=== PATIENT | female | born 1955 | race Caucasian/White ===

== ENCOUNTER → 2017-01-09 | Outpatient (CLI) | payer BC, MEDICARE ==
[~2017-01-09] MED LIST: ACYC-57 PO; ASCO10004 PO; ATOR20TA PO; BOSE125T PO; CHOL200012 PO; CLON-364 PO; CYCL1DRO EACHEYE; DIAZ5TAB4 PO; DICL50TA2 PO; DIGO125T PO; ESOM40CA PO; FENO135C PO; FEXO180T5 PO; FURO40TA6 PO; HYDR-3241 PO; LISI2.5T PO; METF500T PO; METO5TAB5 PO; Magnesium PO; OLAN2.5T5 PO; OLAN5TAB9 PO; OMEG-110 PO; POTA20TA89 PO; PRAV40TA2 PO; PROP10DR3 EACHEYE; RIOC1TAB PO; SILD20TA PO; SPIR100T2 PO; TRIA0.2517 PO; VENL225T PO; VERA360C2 PO; WARF10TA6 PO; WARF5TAB7 PO
== END | disposition home or self-care (01) ==
LOC: CFH 14:22
PROVIDERS: ATTEND Internal Medicine Cardiovascular Disease
DX: I27.2 Other secondary pulmonary hypertension (principal)
CPT/HCPCS: 93306

== ENCOUNTER 2018-06-18 11:00 | Day surgery (SDC) | payer BC, MEDICARE ==
[~2018-06-18] VITALS: Ht 175.3 cm; Wt 80.7 kg
[~2018-06-18 11:00] MED LIST changes: -CHOL200012 PO; +CHOL200074 PO; -CLON-364 PO; +CLON0.5T11 PO; +FEXO180T15 PO; -FEXO180T5 PO; +OLAN2.5T10 PO; -OLAN2.5T5 PO; -SPIR100T2 PO; +SPIR100T4 PO; -TRIA0.2517 PO; +TRIA0.2576 PO; +WARF-36 PO; +WARF10TA43 PO; -WARF10TA6 PO; -WARF5TAB7 PO
[2018-06-18] MEDS ORDERED: LACTATED RINGERS 1,000 ML IV SCH (11:18)
[2018-06-18] MEDS ORDERED: PLEASE ENTER HEIGHT AND WEIGHT MC SCH (11:30)
[2018-06-18 11:43] VITALS: BP 115/67
[2018-06-18] MEDS ORDERED: MIDAZOLAM 1 MG/ML, 2ML ONE (11:55)
[2018-06-18] MEDS ORDERED: FENTANYL PF 100 MCG/2ML ONE (11:55)
[2018-06-18] MEDS ORDERED: MACI10TA PO (12:06)
[2018-06-18] MEDS ORDERED: LAMO50TA3 PO (12:06)
[2018-06-18] MEDS ORDERED: METF500T17 PO (12:06)
[2018-06-18] MEDS ORDERED: FURO80TA3 PO (12:06)
[2018-06-18] MEDS ORDERED: OXYM15MI4 NAS (12:06)
[2018-06-18] MEDS ORDERED: CYCL-259 PO (12:06)
[2018-06-18] MEDS ORDERED: PHENYLEPHRINE 10 MG/ML ONE (12:08)
[2018-06-18] MEDS ORDERED: ONDANSETRON 2MG/ML, 2ML ONE (12:08)
[2018-06-18] MEDS ORDERED: PROPOFOL 50 ML ONE (12:10)
[2018-06-18] MEDS ORDERED: HYDROmorphone 1 MG/ML, 1ML IV PRN (12:30)
[2018-06-18] MEDS ORDERED: LORazepam 2 MG/ML, 1ML IVPush PRN (12:30)
[2018-06-18] MEDS ORDERED: HALOPERIDOL 5 MG/ML IV PRN (12:30)
[2018-06-18] MEDS ORDERED: LABETALOL 5MG/ML, 20ML IV PRN (12:30)
[2018-06-18] MEDS ORDERED: OXYcodone 5 MG/5 ML ORAL.SOL UDC PO PRN (12:30)
[2018-06-18] MEDS ORDERED: hydrALAzine 20 MG/ML, 1ML IV PRN (12:30)
[2018-06-18] MEDS ORDERED: ACETAMINOPHEN 325 MG TABLET PO PRN (12:30)
[2018-06-18] MEDS ORDERED: ONDANSETRON 2MG/ML, 2ML IV PRN (12:30)
[2018-06-18] MEDS ORDERED: FENTANYL PF 100 MCG/2ML IV PRN (12:30)
[2018-06-18] MEDS ORDERED: MEPERIDINE/PF 25MG/0.5ML IVPush PRN (12:30)
== END 2018-06-18 15:00 | disposition home or self-care (01) ==
LOC: OUT 11:00
PROVIDERS: ATTEND Internal Medicine
DX: K29.50 Unspecified chronic gastritis without bleeding (principal); K62.1 Rectal polyp; D12.2 Benign neoplasm of ascending colon; K63.5 Polyp of colon; K21.9 Gastro-esophageal reflux disease without esophagitis; K57.30 Diverticulosis of large intestine without perforation or abscess without bleeding; I10 Essential (primary) hypertension; E11.9 Type 2 diabetes mellitus without complications; Z90.710 Acquired absence of both cervix and uterus; Z88.1 Allergy status to other antibiotic agents
CPT/HCPCS: 43239; 45380; 82962; 88305; 93005; J2370; J2405; J2704; J7120

== ENCOUNTER 2018-06-19 13:31 | Emergency (ER) | payer BC, MEDICARE ==
[~2018-06-19] VITALS: Ht 175.3 cm; Wt 83.4 kg
[~2018-06-19 13:31] MED LIST changes: +CYCL-259 PO; +FURO80TA3 PO; +LAMO50TA3 PO; +MACI10TA PO; +METF500T17 PO; +OXYM15MI4 NAS
[2018-06-19 13:34] VITALS: BP 130/73
[2018-06-19 14:28] LABS: BASOPHILS # (AUTO) 0.02 x10^3/uL (0-0.1); BASOPHILS % (AUTO) 0 % (0-1); EOSINOPHILS # (AUTO) 0.04 x10^3/uL (0-0.4); EOSINOPHILS % (AUTO) 1 % (1-7); LYMPHOCYTES # (AUTO) 1.84 x10^3/uL (1-3.4); LYMPHOCYTES % (AUTO) 23 % (22-44); MD NO; MEAN CORPUSCULAR HEMOGLOBIN 29.5 pg (27.0-34.8); MEAN CORPUSCULAR HGB CONC 32.9 g/dL (32.4-35.8); MEAN CORPUSCULAR VOLUME 89.7 fL (80-100); MEAN PLATELET VOLUME 8.7 fL (7.4-10.4); MONOCYTES # (AUTO) 0.58 x10^3/uL (0.2-0.8); MONOCYTES % (AUTO) 7 % (2-9); NEUTROPHILS # (AUTO) 5.69 x10^3/uL (1.8-6.8); NEUTROPHILS % (AUTO) 70 % (42-75); PLATELET COUNT 200 x10^3/uL (130-400); RED BLOOD COUNT 3.58 x10^6/uL (3.82-5.3); RED CELL DISTRIBUTION WIDTH 15.6 % (9.6-15.2)
[2018-06-19 14:30] LABS: ALBUMIN 3.5 g/dL (3.4-5.0); ANION GAP 5 mmol/L (5-15); CALCIUM 9.7 mg/dL (8.5-10.1); CHLORIDE 110 mmol/L (98-107); CREATININE 1.22 mg/dL (0.55-1.02)
[2018-06-19 14:32] LABS: INTERNATIONAL NORMALIZED RATIO 1.05 (0.93-1.1); PROTHROMBIN TIME 10.8 Seconds (9.6-11.5)
[2018-06-19] MEDS ORDERED: ACETAMINOPHEN 500 MG TABLET PO ONE (16:00)
[2018-06-19] MEDS ORDERED: ACETAMINOPHEN 500 MG TABLET ONE (16:15)
== END 2018-06-19 17:20 | disposition home or self-care (01) ==
LOC: ED 14:48
DX: I80.01 Phlebitis and thrombophlebitis of superficial vessels of right lower extremity (principal); I48.92 Unspecified atrial flutter; K21.9 Gastro-esophageal reflux disease without esophagitis; F32.9 Major depressive disorder, single episode, unspecified; Z88.2 Allergy status to sulfonamides; Z88.1 Allergy status to other antibiotic agents
CPT/HCPCS: 36415; 80048; 82040; 84132; 85025; 85610; 85730; 93005; 99285

== ENCOUNTER 2018-09-03 17:39 | Inpatient (IN) | payer BC, MEDICARE ==
[~2018-09-03] VITALS: Ht 175.3 cm; Wt 81.1 kg
[2018-09-03] MEDS ORDERED: ASPIRIN 81 MG TABLET CHEW PO ONE (18:00)
[2018-09-03] MEDS ORDERED: SODIUM CHLORIDE FLUSH 10ML SYR IVF ONE (18:00)
[2018-09-03] MEDS ORDERED: ASPIRIN 81 MG TABLET CHEW ONE (18:32)
[2018-09-03 18:40] LABS: BASOPHILS # (AUTO) 0.02 x10^3/uL (0-0.1); BASOPHILS % (AUTO) 0 % (0-1); EOSINOPHILS # (AUTO) 0.13 x10^3/uL (0-0.4); EOSINOPHILS % (AUTO) 2 % (1-7); LYMPHOCYTES # (AUTO) 2.43 x10^3/uL (1-3.4); LYMPHOCYTES % (AUTO) 28 % (22-44); MD NO; MEAN CORPUSCULAR HEMOGLOBIN 29.1 pg (27.0-34.8); MEAN CORPUSCULAR HGB CONC 33.1 g/dL (32.4-35.8); MEAN PLATELET VOLUME 8.3 fL (7.4-10.4); MONOCYTES # (AUTO) 0.59 x10^3/uL (0.2-0.8); MONOCYTES % (AUTO) 7 % (2-9); NEUTROPHILS # (AUTO) 5.52 x10^3/uL (1.8-6.8); NEUTROPHILS % (AUTO) 64 % (42-75); PLATELET COUNT 279 x10^3/uL (130-400); RED BLOOD COUNT 3.92 x10^6/uL (3.82-5.3); RED CELL DISTRIBUTION WIDTH 14.4 % (9.6-15.2)
[2018-09-03] MEDS ORDERED: MAGN400T22 PO (18:43)
[2018-09-03 18:47] LABS: INTERNATIONAL NORMALIZED RATIO 2.21 (0.93-1.1); PROTHROMBIN TIME 22.7 Seconds (9.6-11.5)
[2018-09-03 18:49] LABS: ALBUMIN 3.8 g/dL (3.4-5.0); ANION GAP 3 mmol/L (5-15); CALCIUM 9.3 mg/dL (8.5-10.1); CHLORIDE 107 mmol/L (98-107); CREATININE 1.76 mg/dL (0.55-1.02)
--- NOTE | 2018-09-03 18:49 | NUR ---
LATE ENTRY: PT CO INTERMITTENT, "GRABBING", SUBSTERNAL CP X ONE MONTH, WORSENING TODAY. PT REPORTS ONSET WITH LIGHT ACTIVITY, +DIZZINESS. CHEST NON-TENDER TO PALP; DENIES PRODUCTIVE COUGH/FEVER/SOB/LONG DISTANCE TRAVEL/BLE EDEMA OR PAIN. CP RADIATES TO BUE AND JAW. HX OF AFIB/AFLUTTER/PULMONARY HTN. WEARS 3L O2 BY NC AT BASELINE. PT SPEAKING IN FULL SENTENCES WO DIFFICULTY. RESPIRATIONS EVEN/UNLABORED. PT PWD.
[2018-09-03] MEDS ORDERED: VERA180C2 PO (18:50)
[2018-09-03] MEDS ORDERED: FLEC100T PO (18:50)
[2018-09-03 18:52] LABS: TROPONIN I 0.026 ng/mL (0.000-0.045)
--- NOTE | 2018-09-03 18:58 | NUR ---
LATE ENTRY: RECEIVED REPORT FROM SAMANTHA FALCON TO ASSUME PT. CARE AT THIS TIME. PT. RESTING ON GURNEY WITH NADN. PT. TO BE ADMIT TO CARD TELE. PT. IS ON ALL MONITORS. 3L O2 VIA NC IN USE(THIS IS HOME O2). PT. HAS CALL LIGHT IN REACH. ALL SAFETY MEASURES OBSERVED.
[2018-09-03] MEDS ORDERED: WARF7.5T46 PO (19:37)
[2018-09-03] MEDS ORDERED: TRIA0.2576 PO (19:37)
[2018-09-03] MEDS ORDERED: OLAN2.5T10 PO (19:37)
[2018-09-03] MEDS ORDERED: CYCL-259 PO (19:57)
[2018-09-03] MEDS ORDERED: CYCL1DRO EACHEYE (20:06)
--- NOTE | 2018-09-03 20:13 | NUR ---
PT. VS UPDATED. PT. AWARE OF PLAN FOR ADMIT. MED REQ COMPLETED AND LIST RETURNED TO PT. PT. AMBULATORY TO BR WITH STEADY GAIT. NADN. CALL LIGHT IN REACH. FAMILY AT FOR SUPPORT.
--- NOTE | 2018-09-03 20:41 | NUR ---
[facility] WAS IN TO EVAL PT. FOR ADMISSION. PT. TOOK HOME MEDS FOR HS; CLAUDIA MAGUIRE AWARE OF THIS.
[2018-09-03] MEDS ORDERED: SODIUM CHLORIDE 0.9% 1,000 ML IV SCH (20:43)
--- NOTE | 2018-09-03 20:46 | NUR ---
THIS RN UNABLE TO GIVE REPORT AT TIME FLOOR RN CALLED; CALLED BACK TO GIVE REPORT; RN ON FLOOR UNABLE TO TAKE REPORT AT THIS MOMENT. WILL AWAIT RETURN PHONE CALL OR CALL BACK.
--- NOTE | 2018-09-03 20:55 | NUR ---
REPORT TO SAMANTHA LEIGH. FLOOR READY FOR PT. TRANSPORT.
[2018-09-03] MEDS ORDERED: CHOLECALCIFEROL 1,000 UNIT TABLET PO SCH (21:00)
[2018-09-03] MEDS ORDERED: TEMPLATE NON-FORMULARY MED. (Clonazepam** 0.5 MG) PO PRN (21:00)
[2018-09-03] MEDS ORDERED: POLYETHYLENE GLYCOL 17 GM PACKET PO PRN (21:00)
[2018-09-03] MEDS ORDERED: hydrALAzine 20 MG/ML, 1ML IVPush PRN (21:00)
[2018-09-03] MEDS ORDERED: ASCORBIC ACID 500 MG TABLET PO SCH (21:00)
[2018-09-03] MEDS ORDERED: ACETAMINOPHEN 325 MG TABLET PO PRN (21:00)
[2018-09-03] MEDS ORDERED: FUROSEMIDE 20 MG/2 ML IV ONE (21:00)
[2018-09-03] MEDS ORDERED: ONDANSETRON ODT 4 MG PO PRN (21:00)
[2018-09-03] MEDS ORDERED: BISACODYL 10 MG SUPP PR PRN (21:00)
[2018-09-03 21:30] VITALS: BP 103/65
[2018-09-03] MEDS: RIOCIGUAT 1 MG HOMEMEDPO SCH (22:16)
[2018-09-03] MEDS: LAMOTRIGINE 25 MG TABLET PO SCH (22:17)
[2018-09-03] MEDS: FLECAINIDE 100MG TABLET PO SCH (22:17)
[2018-09-03] MEDS: PRAVASTATIN 40 MG TABLET PO SCH (22:17)
[2018-09-03] MEDS: DIGOXIN 0.125 MG TABLET PO SCH (22:17)
[2018-09-03] MEDS: OLANZAPINE 2.5 MG TABLET PO SCH (22:18)
[2018-09-03] MEDS: ZOLPIDEM 5MG TABLET PO SCH (22:18)
[2018-09-03] MEDS ORDERED: WARFARIN 2 MG TABLET PO-COUM SCH (22:30)
[2018-09-03] MEDS ORDERED: CLONAZEPAM MC SCH (22:30)
[2018-09-03] MEDS ORDERED: WARFARIN 5 MG TABLET PO-COUM SCH (22:30)
[2018-09-03] MEDS: OMEGA-3/FISH OIL CAPSULE PO SCH (22:54)
[2018-09-03] MEDS: INSULIN LISPRO 100 UNITS/ML, PEN SQ-INSULIN SCH (22:55)
[2018-09-04 06:19] VITALS: BP 89/50
[2018-09-04 06:37] LABS: BASOPHILS # (AUTO) 0.04 x10^3/uL (0-0.1); BASOPHILS % (AUTO) 1 % (0-1); EOSINOPHILS # (AUTO) 0.22 x10^3/uL (0-0.4); EOSINOPHILS % (AUTO) 2 % (1-7); LYMPHOCYTES # (AUTO) 2.48 x10^3/uL (1-3.4); LYMPHOCYTES % (AUTO) 27 % (22-44); MD NO; MEAN CORPUSCULAR HEMOGLOBIN 29.2 pg (27.0-34.8); MEAN CORPUSCULAR VOLUME 88.6 fL (80-100); MEAN PLATELET VOLUME 8.1 fL (7.4-10.4); MONOCYTES # (AUTO) 0.56 x10^3/uL (0.2-0.8); MONOCYTES % (AUTO) 6 % (2-9); NEUTROPHILS # (AUTO) 6.03 x10^3/uL (1.8-6.8); NEUTROPHILS % (AUTO) 65 % (42-75); PLATELET COUNT 205 x10^3/uL (130-400); RED BLOOD COUNT 3.25 x10^6/uL (3.82-5.3); RED CELL DISTRIBUTION WIDTH 14.6 % (9.6-15.2)
[2018-09-04 06:52] LABS: ALBUMIN 3.2 g/dL (3.4-5.0); ANION GAP 7 mmol/L (5-15); CALCIUM 8.8 mg/dL (8.5-10.1); CHLORIDE 106 mmol/L (98-107)
[2018-09-04 06:59] LABS: ALANINE AMINOTRANSFERASE 24 U/L (12-78); ALKALINE PHOSPHATASE 59 U/L (45-117); BILIRUBIN,TOTAL 0.3 mg/dL (0.2-1.0); CHOL/HDL RATIO 3.5; CHOLESTEROL, TOTAL 183 mg/dL (140-239); HDL CHOL % 28 % (28-40); HDL CHOLESTEROL (DIRECT) 52 mg/dL (40-60); LDL CHOLESTEROL,CALCULATED 88 mg/dL (54-169); LDL/HDL RATIO 1.7 (0.5-3.0); TOTAL PROTEIN 6.4 g/dL (6.4-8.2); TRIGLYCERIDES 215 mg/dL (50-200); TROPONIN I 0.021 ng/mL (0.000-0.045); VLDL CHOLESTEROL 43 mg/dL (0-25)
[2018-09-04] MEDS: INSULIN LISPRO 100 UNITS/ML, PEN SQ-INSULIN SCH ×4 (07:00→21:48)
[2018-09-04] MEDS ORDERED: FUROSEMIDE 20 MG/2 ML IV ONE (07:30)
[2018-09-04 08:17] LABS: INTERNATIONAL NORMALIZED RATIO 2.1 (0.93-1.1); PROTHROMBIN TIME 21.6 Seconds (9.6-11.5)
[2018-09-04] MEDS: ACYCLOVIR 800 MG TABLET PO SCH (08:32)
[2018-09-04] MEDS: CHOLECALCIFEROL 1,000 UNIT TABLET PO SCH (08:32)
[2018-09-04] MEDS: ASCORBIC ACID 500 MG TABLET PO SCH (08:32)
[2018-09-04] MEDS: VENLAFAXINE XR 37.5MG CAP.ER.24H PO SCH (08:33)
[2018-09-04] MEDS: LAMOTRIGINE 25 MG TABLET PO SCH ×2 (08:33→19:54)
[2018-09-04] MEDS: FLECAINIDE 100MG TABLET PO SCH ×2 (08:34→19:54)
[2018-09-04] MEDS: MAGNESIUM OXIDE 400 MG TABLET PO SCH (08:34)
[2018-09-04] MEDS: SENNA/DOCUSATE TABLET PO SCH (08:34)
[2018-09-04] MEDS: GABAPENTIN 100 MG CAPSULE PO SCH ×2 (08:34→12:56)
[2018-09-04] MEDS: PANTOPROZOLE 40MG TABLET PO SCH (08:44)
[2018-09-04] MEDS: RIOCIGUAT 1 MG HOMEMEDPO SCH ×3 (09:00→19:54)
[2018-09-04] MEDS ORDERED: VERAPAMIL ER 180MG TABLET.ER PO SCH ×2 (09:00→21:00)
[2018-09-04] MEDS ORDERED: REGADENOSON 0.4 MG/5 ML SYRINGE ONE (09:48)
[2018-09-04 14:54] VITALS: BP 112/67
[2018-09-04] MEDS ORDERED: WARFARIN 5 MG TABLET PO-COUM SCH (18:00)
[2018-09-04] MEDS ORDERED: WARFARIN 7.5 MG TABLET PO-COUM SCH (18:00)
[2018-09-04 19:45] VITALS: BP 106/69
[2018-09-04] MEDS: DIGOXIN 0.125 MG TABLET PO SCH (19:54)
[2018-09-04] MEDS: OLANZAPINE 2.5 MG TABLET PO SCH (19:54)
[2018-09-04] MEDS: PRAVASTATIN 40 MG TABLET PO SCH (19:54)
[2018-09-04] MEDS: OMEGA-3/FISH OIL CAPSULE PO SCH (19:54)
[2018-09-04] MEDS: CYCLOBENZAPRINE 10 MG TABLET PO PRN (20:02)
[2018-09-04 20:47] VITALS: BP 120/66
[2018-09-04] MEDS ORDERED: AMIODARONE 150 MG in DEXTROSE 5% 100 ML IV ONE ×3 (21:30→23:30)
[2018-09-04] MEDS ORDERED: FILTER 0.22 MICRON FOR AMIODARONE IV PRN (21:30)
[2018-09-04 22:20] VITALS: BP 116/68
[2018-09-04] MEDS ORDERED: FILTER 0.22 MICRON IV ONE (22:30)
[2018-09-04 22:59] VITALS: BP 106/66
[2018-09-04] MEDS ORDERED: AMIODARONE 900 MG in DEXTROSE 5% 482 ML IV PRN (23:30)
[2018-09-05] MEDS: ZOLPIDEM 5MG TABLET PO SCH ×2 (00:15→20:35)
[2018-09-05 01:20] VITALS: BP 112/73
[2018-09-05 05:59] LABS: BASOPHILS # (AUTO) 0.04 x10^3/uL (0-0.1); BASOPHILS % (AUTO) 1 % (0-1); EOSINOPHILS # (AUTO) 0.17 x10^3/uL (0-0.4); EOSINOPHILS % (AUTO) 2 % (1-7); LYMPHOCYTES # (AUTO) 3.05 x10^3/uL (1-3.4); LYMPHOCYTES % (AUTO) 37 % (22-44); MD NO; MEAN CORPUSCULAR HEMOGLOBIN 28.1 pg (27.0-34.8); MEAN CORPUSCULAR VOLUME 87.9 fL (80-100); MEAN PLATELET VOLUME 8.3 fL (7.4-10.4); MONOCYTES # (AUTO) 0.63 x10^3/uL (0.2-0.8); MONOCYTES % (AUTO) 8 % (2-9); NEUTROPHILS # (AUTO) 4.34 x10^3/uL (1.8-6.8); NEUTROPHILS % (AUTO) 53 % (42-75); PLATELET COUNT 238 x10^3/uL (130-400); RED BLOOD COUNT 3.67 x10^6/uL (3.82-5.3); RED CELL DISTRIBUTION WIDTH 14.4 % (9.6-15.2)
[2018-09-05 06:13] LABS: CHLORIDE 104 mmol/L (98-107)
[2018-09-05 06:34] LABS: ANION GAP 9 mmol/L (5-15); CALCIUM 9.4 mg/dL (8.5-10.1); CREATININE 1.13 mg/dL (0.55-1.02)
[2018-09-05] MEDS: INSULIN LISPRO 100 UNITS/ML, PEN SQ-INSULIN SCH ×4 (08:25→20:28)
[2018-09-05 08:34] VITALS: BP 109/70
[2018-09-05] MEDS: FLECAINIDE 100MG TABLET PO SCH (09:00)
[2018-09-05] MEDS: GABAPENTIN 100 MG CAPSULE PO SCH ×2 (09:19→15:41)
[2018-09-05] MEDS: CHOLECALCIFEROL 1,000 UNIT TABLET PO SCH (09:19)
[2018-09-05] MEDS: MAGNESIUM OXIDE 400 MG TABLET PO SCH (09:19)
[2018-09-05] MEDS: PANTOPROZOLE 40MG TABLET PO SCH (09:19)
[2018-09-05] MEDS: ASCORBIC ACID 500 MG TABLET PO SCH (09:19)
[2018-09-05] MEDS: SENNA/DOCUSATE TABLET PO SCH (09:20)
[2018-09-05] MEDS: LAMOTRIGINE 25 MG TABLET PO SCH ×2 (09:20→20:33)
[2018-09-05] MEDS: VENLAFAXINE XR 37.5MG CAP.ER.24H PO SCH (09:20)
[2018-09-05] MEDS: ACYCLOVIR 800 MG TABLET PO SCH (09:20)
[2018-09-05] MEDS ORDERED: SPIR50TA4 PO (09:25)
[2018-09-05] MEDS ORDERED: TEMPLATE NON-FORMULARY MED. (Riociguat** (Adempas**) 2.5 MG) HOMEMEDPO SCH (09:30)
[2018-09-05] MEDS ORDERED: CONJUGATED ESTROGENS VG PRN (11:30)
[2018-09-05] MEDS ORDERED: PROPOFOL 10 MG/ML, 20ML ONE (14:17)
[2018-09-05] MEDS: SPIRONOLACTONE 50 MG TABLET PO SCH (15:29)
[2018-09-05] MEDS: FUROSEMIDE 80 MG TABLET PO SCH (15:29)
[2018-09-05 15:38] VITALS: BP 115/75
[2018-09-05] MEDS ORDERED: METHOCARBAMOL 500 MG TABLET PO PRN (16:00)
[2018-09-05] MEDS: TEMPLATE NON-FORMULARY MED. (Riociguat** (Adempas**) 2.5 MG) HOMEMEDPO SCH ×2 (16:31→20:36)
[2018-09-05] MEDS: morphine SULFATE 10 MG/ML, 1ML IVPush PRN (17:49)
[2018-09-05] MEDS ORDERED: WARFARIN 5 MG TABLET PO-COUM SCH (18:00)
[2018-09-05 18:53] LABS: INTERNATIONAL NORMALIZED RATIO 1.75 (0.93-1.1); PROTHROMBIN TIME 18.2 Seconds (9.6-11.5)
[2018-09-05] MEDS: DIGOXIN 0.125 MG TABLET PO SCH (20:31)
[2018-09-05] MEDS: PRAVASTATIN 40 MG TABLET PO SCH (20:32)
[2018-09-05] MEDS: OMEGA-3/FISH OIL CAPSULE PO SCH (20:34)
[2018-09-05] MEDS: OLANZAPINE 2.5 MG TABLET PO SCH (20:34)
[2018-09-05] MEDS: CYCLOBENZAPRINE 10 MG TABLET PO PRN (20:45)
[2018-09-05] MEDS ORDERED: TRIAZOLAM 0.25 MG PO SCH (21:00)
[2018-09-06 02:36] VITALS: BP 107/63
[2018-09-06 05:16] LABS: BASOPHILS # (AUTO) 0.04 x10^3/uL (0-0.1); BASOPHILS % (AUTO) 1 % (0-1); EOSINOPHILS # (AUTO) 0.22 x10^3/uL (0-0.4); EOSINOPHILS % (AUTO) 3 % (1-7); LYMPHOCYTES % (AUTO) 36 % (22-44); MD NO; MEAN CORPUSCULAR HEMOGLOBIN 29.5 pg (27.0-34.8); MEAN CORPUSCULAR HGB CONC 33.4 g/dL (32.4-35.8); MEAN CORPUSCULAR VOLUME 88.3 fL (80-100); MEAN PLATELET VOLUME 8.4 fL (7.4-10.4); MONOCYTES # (AUTO) 0.55 x10^3/uL (0.2-0.8); MONOCYTES % (AUTO) 7 % (2-9); NEUTROPHILS # (AUTO) 4.29 x10^3/uL (1.8-6.8); NEUTROPHILS % (AUTO) 54 % (42-75); PLATELET COUNT 224 x10^3/uL (130-400); RED BLOOD COUNT 3.43 x10^6/uL (3.82-5.3); RED CELL DISTRIBUTION WIDTH 14.5 % (9.6-15.2)
[2018-09-06 05:21] LABS: CHLORIDE 106 mmol/L (98-107)
[2018-09-06 05:28] LABS: ANION GAP 5 mmol/L (5-15); CREATININE 0.91 mg/dL (0.55-1.02)
[2018-09-06] MEDS: PANTOPROZOLE 40MG TABLET PO SCH (06:18)
[2018-09-06] MEDS: INSULIN LISPRO 100 UNITS/ML, PEN SQ-INSULIN SCH ×2 (07:00→11:00)
[2018-09-06] MEDS: GABAPENTIN 100 MG CAPSULE PO SCH ×2 (08:48→12:41)
[2018-09-06] MEDS: SPIRONOLACTONE 50 MG TABLET PO SCH (08:49)
[2018-09-06] MEDS: TEMPLATE NON-FORMULARY MED. (Riociguat** (Adempas**) 2.5 MG) HOMEMEDPO SCH (08:49)
[2018-09-06] MEDS: VENLAFAXINE XR 37.5MG CAP.ER.24H PO SCH (08:50)
[2018-09-06] MEDS: LAMOTRIGINE 25 MG TABLET PO SCH (08:50)
[2018-09-06] MEDS: MAGNESIUM OXIDE 400 MG TABLET PO SCH (08:50)
[2018-09-06] MEDS: FUROSEMIDE 80 MG TABLET PO SCH (08:50)
[2018-09-06] MEDS: ACYCLOVIR 800 MG TABLET PO SCH (08:51)
[2018-09-06] MEDS: CHOLECALCIFEROL 1,000 UNIT TABLET PO SCH (08:51)
[2018-09-06] MEDS: ASCORBIC ACID 500 MG TABLET PO SCH (08:51)
[2018-09-06] MEDS: SENNA/DOCUSATE TABLET PO SCH (08:51)
[2018-09-06] MEDS ORDERED: FLECAINIDE 100MG TABLET PO SCH (09:30)
[2018-09-06 09:56] VITALS: BP 103/65
[2018-09-06] MEDS: morphine SULFATE 10 MG/ML, 1ML IVPush PRN (11:31)
== END 2018-09-06 15:40 | disposition home or self-care (01) | DRG 682 ==
LOC: ED 18:50 → EDIP 20:01 → 5SO 21:14 → DCLOUNGE 09-06 15:15
PROVIDERS: ADMIT Hospitalist; ATTEND Hospitalist
PROC: 5A2204Z Restoration of Cardiac Rhythm, Single (ICD-10-PCS; principal; 2018-09-06)
DX: N17.9 Acute kidney failure, unspecified (principal); I50.33 Acute on chronic diastolic (congestive) heart failure; I48.92 Unspecified atrial flutter; D68.69 Other thrombophilia; E78.5 Hyperlipidemia, unspecified; I27.20 Pulmonary hypertension, unspecified; Z79.01 Long term (current) use of anticoagulants; I48.2 Chronic atrial fibrillation; D64.9 Anemia, unspecified; F31.9 Bipolar disorder, unspecified; I11.0 Hypertensive heart disease with heart failure; E11.9 Type 2 diabetes mellitus without complications; K21.9 Gastro-esophageal reflux disease without esophagitis; M19.90 Unspecified osteoarthritis, unspecified site; M79.7 Fibromyalgia; F32.9 Major depressive disorder, single episode, unspecified; Z82.61 Family history of arthritis; Z85.828 Personal history of other malignant neoplasm of skin; Z86.711 Personal history of pulmonary embolism; Z86.718 Personal history of other venous thrombosis and embolism; Z86.72 Personal history of thrombophlebitis; Z87.891 Personal history of nicotine dependence; Z90.710 Acquired absence of both cervix and uterus; Z90.89 Acquired absence of other organs
CPT/HCPCS: 0399T; 36415; 71045; 78452; 80048; 80053; 80061; 80162; 82040; 82962; 83036; 83880; 84484; 85025; 85610; 92960; 93005; 93017; 99285; C8929; G0378; J2704; J2785; A9502; C9898; J0282; J1815; J1940; J2270; J7060

== ENCOUNTER → 2019-10-02 | Outpatient (CLI) | payer BC, MEDICARE ==
[~2019-10-02] MED LIST changes: +CLON-364 PO; -CLON0.5T11 PO; -DIGO125T PO; +DIGO125T85 PO; +FLEC100T PO; +MAGN400T22 PO; +SPIR50TA4 PO; +VERA180C2 PO; +WARF7.5T46 PO
== END | disposition home or self-care (01) ==
LOC: RAD 11:00
PROVIDERS: ATTEND Internal Medicine Cardiovascular Disease
DX: J84.10 Pulmonary fibrosis, unspecified (principal); J98.4 Other disorders of lung; R06.02 Shortness of breath
CPT/HCPCS: 71250; 78582; A9540; A9558

== ENCOUNTER 2019-10-24 14:11 | Emergency (ER) | payer BC, MEDICARE ==
[~2019-10-24] VITALS: Ht 175.3 cm; Wt 102.4 kg
--- NOTE | 2019-10-24 14:48 | NUR ---
PT C/O HEART PALPITATIONS. PT WEARING [employer]. [employer] CALLED PT AUDIO VISUAL SPECIALIST FOR HR OF 220S. PIV STARTED. LABS DRAWN. MD AT BEDSIDE FOR ASSESSMENT. CALL LIGHT IN REACH. CONNECTED TO MONITORING.
[2019-10-24] MEDS ORDERED: SODIUM CHLORIDE FLUSH 10ML SYR IVF ONE (15:00)
[2019-10-24 15:13] LABS: BASOPHILS # (AUTO) 0.04 x10^3/uL (0-0.1); BASOPHILS % (AUTO) 1 % (0-1); EOSINOPHILS % (AUTO) 5 % (1-7); LYMPHOCYTES # (AUTO) 2.29 x10^3/uL (1-3.4); LYMPHOCYTES % (AUTO) 31 % (22-44); MD NO; MEAN CORPUSCULAR HEMOGLOBIN 28.6 pg (27.0-34.8); MEAN CORPUSCULAR HGB CONC 32.3 g/dL (32.4-35.8); MEAN CORPUSCULAR VOLUME 88.7 fL (80-100); MEAN PLATELET VOLUME 8.3 fL (7.4-10.4); MONOCYTES # (AUTO) 0.45 x10^3/uL (0.2-0.8); MONOCYTES % (AUTO) 6 % (2-9); NEUTROPHILS % (AUTO) 58 % (42-75); PLATELET COUNT 226 x10^3/uL (130-400); RED BLOOD COUNT 4.17 x10^6/uL (3.82-5.3); RED CELL DISTRIBUTION WIDTH 19.6 % (9.6-15.2)
[2019-10-24 15:21] LABS: ALBUMIN 3.7 g/dL (3.4-5.0); ANION GAP 6 mmol/L (5-15); CALCIUM 9.1 mg/dL (8.5-10.1); CHLORIDE 105 mmol/L (98-107); D-DIMER 0.32 ug/mlFEU (0.00-0.52); INTERNATIONAL NORMALIZED RATIO 1.89 (0.93-1.1); PROTHROMBIN TIME 20.2 Seconds (9.6-11.5)
[2019-10-24 15:28] LABS: ALANINE AMINOTRANSFERASE 29 U/L (12-78); ALKALINE PHOSPHATASE 90 U/L (45-117); BILIRUBIN,TOTAL 0.4 mg/dL (0.2-1.0); CREATININE 1.21 mg/dL (0.55-1.02); T4 (THYROXINE) 7.1 mcg/dL (4.8-13.9); TOTAL PROTEIN 7.8 g/dL (6.4-8.2); TROPONIN I < 0.015 ng/mL (0.000-0.045)
[2019-10-24] MEDS ORDERED: METOPROLOL TARTRATE 25 MG TAB PO ONE (15:30)
[2019-10-24] MEDS ORDERED: METOPROLOL TARTRATE 25 MG TAB ONE (15:35)
--- NOTE | 2019-10-24 15:42 | NUR ---
MEDS ADMIN PER OCT. PT RESTING COMFORTABLY ON GURNEY. NADN. ALL RESULTS ARE BACK AT THIS TIME. CHART UP FOR RECHECK.
[2019-10-24 16:27] VITALS: BP 107/74
== END 2019-10-24 16:30 | disposition home or self-care (01) ==
LOC: ED 15:25
DX: I48.0 Paroxysmal atrial fibrillation (principal); I48.92 Unspecified atrial flutter; R07.89 Other chest pain; R00.2 Palpitations; I45.10 Unspecified right bundle-branch block; I51.7 Cardiomegaly; I10 Essential (primary) hypertension; K21.9 Gastro-esophageal reflux disease without esophagitis; E11.9 Type 2 diabetes mellitus without complications; E66.9 Obesity, unspecified; Z79.01 Long term (current) use of anticoagulants; Z86.711 Personal history of pulmonary embolism; Z86.718 Personal history of other venous thrombosis and embolism
CPT/HCPCS: 36415; 71045; 80053; 83735; 83880; 84436; 84443; 84484; 85025; 85379; 85610; 93005; 99285

== ENCOUNTER 2019-10-28 14:36 | Inpatient (IN) | payer BC, MEDICARE ==
[~2019-10-28] VITALS: Ht 175.3 cm; Wt 101.8 kg
[2019-10-28] MEDS ORDERED: SODIUM CHLORIDE FLUSH 10ML SYR IVF ONE (15:00)
[2019-10-28] MEDS ORDERED: DILTIAZEM 125 MG in SODIUM CHLORIDE 0.9% 100 ML IV SCH (15:11)
[2019-10-28] MEDS ORDERED: DILTIAZEM 5 MG/ML, 5ML ONE (15:15)
[2019-10-28 15:25] LABS: ALANINE AMINOTRANSFERASE 31 U/L (12-78); ALBUMIN 3.6 g/dL (3.4-5.0); ANION GAP 6 mmol/L (5-15); CALCIUM 9.2 mg/dL (8.5-10.1); CHLORIDE 102 mmol/L (98-107); CREATININE 1.53 mg/dL (0.55-1.02)
[2019-10-28 15:30] LABS: ALKALINE PHOSPHATASE 91 U/L (45-117); BILIRUBIN,TOTAL 0.3 mg/dL (0.2-1.0); FREE T4 (FREE THYROXINE) 0.99 ng/dL (0.76-1.46); TOTAL PROTEIN 7.8 g/dL (6.4-8.2); TROPONIN I < 0.015 ng/mL (0.000-0.045)
[2019-10-28] MEDS ORDERED: DILTIAZEM 5 MG/ML, 5ML IV ONE (15:30)
[2019-10-28 15:31] LABS: BASOPHILS # (AUTO) 0.07 x10^3/uL (0-0.1); BASOPHILS % (AUTO) 1 % (0-1); EOSINOPHILS # (AUTO) 0.51 x10^3/uL (0-0.4); EOSINOPHILS % (AUTO) 5 % (1-7); LYMPHOCYTES # (AUTO) 3.11 x10^3/uL (1-3.4); LYMPHOCYTES % (AUTO) 31 % (22-44); MD NO; MEAN CORPUSCULAR HGB CONC 32.1 g/dL (32.4-35.8); MEAN CORPUSCULAR VOLUME 90.2 fL (80-100); MEAN PLATELET VOLUME 7.8 fL (7.4-10.4); MONOCYTES # (AUTO) 0.79 x10^3/uL (0.2-0.8); MONOCYTES % (AUTO) 8 % (2-9); NEUTROPHILS # (AUTO) 5.41 x10^3/uL (1.8-6.8); NEUTROPHILS % (AUTO) 55 % (42-75); PLATELET COUNT 241 x10^3/uL (130-400); RED BLOOD COUNT 4.21 x10^6/uL (3.82-5.3); RED CELL DISTRIBUTION WIDTH 20.2 % (9.6-15.2)
--- NOTE | 2019-10-28 15:36 | NUR ---
THIS IS A 64 YO FEMALE WHO PRESENTS TO THE ER IN 150'S A-FIB WITH RVR. PT REPORTS SHE FEELS LIKE HER HEART "HAS BEEN IN LABOR, IT'LL HAPPEN AND THEN EASE OFF". PT AO X 4. SKIN PWD. RESP EVEN AND UNLABORED. PT CURRENTLY DENIES PAIN. PT MEDICATED ORDERED BY CELSA GARRIDO AND HR IS NOW 100'S AFIB WITH BBB. PT PROVIDED WITH ICE CHIPS WITH OKAY BY CELSA GARRIDO. PT ON CONT BP, CARDIAC AND O2 MONITORS. SON AT BEDSIDE. CALL LIGHT WITHIN REACH.
[2019-10-28 16:02] LABS: INTERNATIONAL NORMALIZED RATIO 2.39 (0.93-1.1); PROTHROMBIN TIME 25.6 Seconds (9.6-11.5)
--- NOTE | 2019-10-28 16:06 | NUR ---
BREAK RN: SPOKE TO DR GARRIDO. DR GARRIDO AWARE OF VS, WANTS MARY JANE CAIN HELD AT THIS TIME. DR GARRIDO TO TALK TO CARDIOLOGY. PT WATCHING TV. DATA REDUCTION TECHNICIAN ON. AFIB NOTED. AT BEDSIDE. WILL CONTINUE TO MONITOR.
[2019-10-28] MEDS ORDERED: WARF7.5T46 PO (16:12)
[2019-10-28] MEDS ORDERED: OLAN7.5T5 PO (16:16)
[2019-10-28] MEDS ORDERED: TRIA0.2576 PO (16:17)
[2019-10-28] MEDS ORDERED: FURO20TA3 PO (16:17)
[2019-10-28] MEDS ORDERED: METF500T17 PO (16:18)
[2019-10-28] MEDS ORDERED: GABA300C10 PO (16:19)
[2019-10-28] MEDS ORDERED: [UNRECOGNIZED DRUG - OTHER] (16:20)
[2019-10-28] MEDS ORDERED: METOPROLOL PO (16:21)
[2019-10-28] MEDS ORDERED: RIOC1TAB PO (16:21)
--- NOTE | 2019-10-28 16:35 | NUR ---
DR. ODONNELL AT BEDSIDE FOR EVAL AT THIS TIME. PT A-FIB 100'S ON BID WRITER. PT AO X 4. SKIN PWD. RESP EVEN AND UNLABORED. CALL LIGHT WITHIN REACH. WILL CONT TO MONITOR PT.
[2019-10-28] MEDS ORDERED: morphine SULFATE 10 MG/ML, 1ML IVPush PRN (17:00)
[2019-10-28] MEDS ORDERED: ONDANSETRON 2MG/ML, 2ML IVPush PRN (17:00)
[2019-10-28] MEDS ORDERED: hydrALAzine 20 MG/ML, 1ML IVPush PRN (17:00)
[2019-10-28] MEDS ORDERED: LABETALOL 5MG/ML, 20ML IVPush PRN (17:00)
[2019-10-28] MEDS ORDERED: FUROSEMIDE 40 MG/4 ML IV SCH (17:00)
[2019-10-28] MEDS ORDERED: FUROSEMIDE 20 MG/2 ML ONE (17:08)
--- NOTE | 2019-10-28 17:17 | NUR ---
CELSA GARRIDO, MAY ODONNELL AND ADMITTING MD GARCIA AWARE OF PT'S SPO2. PT REPORTS SHE IS NORMALLY "LOW 90'S". PT DENIES SOB. WILL ATTEMPT A SIMPLE MASK IN LIEU OF A NC PT REPORTS SHE DOES BREATHE MORE THROUGH HER MOUTH. PT AO X 4. SKIN PWD. RESP EVEN AND UNLABORED. PT STEADY UPON AMBULATION TO HOSPITAL.
[2019-10-28] MEDS ORDERED: VERA180T6 PO (17:22)
--- NOTE | 2019-10-28 17:25 | NUR ---
ADMITTING MD BILLINGSLEY AT BEDSIDE. PT'S SPO2 IMPROVED TO 94 WITH SIMPLE MASK.
[2019-10-28 17:38] LABS: TROPONIN I < 0.015 ng/mL (0.000-0.045)
[2019-10-28] MEDS: INSULIN LISPRO 100 UNITS/ML, PEN SQ-INSULIN SCH ×2 (18:07→21:04)
[2019-10-28] MEDS: SOTALOL 80MG TABLET PO SCH (18:24)
--- NOTE | 2019-10-28 18:28 | NUR ---
DISCUSSED HOLDING SOTALOL WITH CARLOS ENRIQUE MAGUIRE WHO IS COVERING FOR [facility]. PT'S HR HAS BEEN 70'S SINUS AND BP IS 90'S/50'S. OKAY TO HOLD MEDICATION AT THIS TIME. Addendum: 10/28/19 at 1834 by RONALDREMO DISCUSSED HOLDING SOTALOL WITH CARLOS ENRIQUE MAGUIRE WHO IS COVERING FOR [facility]. PT'S HR HAS BEEN 70'S SINUS AND BP IS 81/48, AND PER ORDER BY CARDS, MEDICATION IS BE HELD FOR SBP >85. NO FLUIDS OR NEW ORDERS RECEIVED AT THIS TIME.
--- NOTE | 2019-10-28 19:45 | NUR ---
PT CURRENTLY RESTING ON GURNEY. NAD NOTED. SKIN PWD. RESP EVEN AND UNLABORED. PT PROVIDED WITH SALAD AND WATER IN ACCORDANCE WITH CARDIAC DIET. PT ON CONT BP, CARDIAC AND O2 MONITORS. PT 50-70'S RHYTHM ON MANAGER CONTROL WITH NO RECENT CHANGES. PT AO X 4. SKIN PWD. RESP EVEN AND UNLABORED. PT DENIES PAIN AT THIS TIME. CALL LIGHT WITHIN REACH. WILL CONT TO MONITOR PT.
[2019-10-28] MEDS ORDERED: ZOLPIDEM 5MG TABLET PO PRN (20:30)
[2019-10-28] MEDS ORDERED: OLANZAPINE 2.5 MG TABLET PO ONE (20:30)
[2019-10-28] MEDS ORDERED: LAMOTRIGINE 25 MG TABLET PO ONE (20:30)
--- NOTE | 2019-10-28 20:45 | NUR ---
REPORT TO SAMANTHA CABRERA ON TELE. PT CURRENTLY RESTING ON [facility]. NAD NOTED. SKIN PWD. RESP EVEN AND UNLABORED. PT DENIES PAIN OR NEEDS AT THIS TIME. PT STEADY UPON AMBULATION TO RESTROOM AND BACK TO [facility]. CALL LIGHT WITHIN REACH. WILL CONT TO MONITOR PT.
[2019-10-28] MEDS ORDERED: CYCL-259 PO (20:56)
[2019-10-28] MEDS ORDERED: GABAPENTIN 100 MG CAPSULE PO ONE (21:00)
[2019-10-28] MEDS ORDERED: INSULIN SINGLE DOSE, ER ONE (21:01)
[2019-10-28] MEDS: PRAVASTATIN 40 MG TABLET PO SCH (21:04)
[2019-10-28] MEDS ORDERED: CYCLOBENZAPRINE 10 MG TABLET ONE (21:09)
[2019-10-28] MEDS: CYCLOBENZAPRINE 10 MG TABLET PO PRN (21:10)
[2019-10-28 21:45] VITALS: BP 92/51
[2019-10-28] MEDS ORDERED: WARFARIN 7.5 MG TABLET PO-COUM ONE (22:30)
[2019-10-28 23:38] LABS: TROPONIN I < 0.015 ng/mL (0.000-0.045)
[2019-10-29] VITALS (9 sets, daily range): BP systolic 84–103; BP diastolic 43–63
[2019-10-29] MEDS ORDERED: ADEMPAS 2.5 MG HOMEMEDPO SCH ×2 (01:00→11:30)
[2019-10-29 05:21] LABS: BASOPHILS # (AUTO) 0.04 x10^3/uL (0-0.1); BASOPHILS % (AUTO) 1 % (0-1); EOSINOPHILS # (AUTO) 0.34 x10^3/uL (0-0.4); EOSINOPHILS % (AUTO) 5 % (1-7); LYMPHOCYTES # (AUTO) 2.51 x10^3/uL (1-3.4); LYMPHOCYTES % (AUTO) 34 % (22-44); MD NO; MEAN CORPUSCULAR HEMOGLOBIN 29.2 pg (27.0-34.8); MEAN CORPUSCULAR HGB CONC 32.3 g/dL (32.4-35.8); MEAN CORPUSCULAR VOLUME 90.5 fL (80-100); MEAN PLATELET VOLUME 8.2 fL (7.4-10.4); MONOCYTES # (AUTO) 0.65 x10^3/uL (0.2-0.8); MONOCYTES % (AUTO) 9 % (2-9); NEUTROPHILS # (AUTO) 3.98 x10^3/uL (1.8-6.8); NEUTROPHILS % (AUTO) 53 % (42-75); PLATELET COUNT 181 x10^3/uL (130-400); RED BLOOD COUNT 3.41 x10^6/uL (3.82-5.3); RED CELL DISTRIBUTION WIDTH 20.5 % (9.6-15.2)
[2019-10-29 05:35] LABS: CHLORIDE 100 mmol/L (98-107)
[2019-10-29 05:45] LABS: ALANINE AMINOTRANSFERASE 24 U/L (12-78); ALBUMIN 3.1 g/dL (3.4-5.0); ALKALINE PHOSPHATASE 76 U/L (45-117); ANION GAP 7 mmol/L (5-15); BILIRUBIN,TOTAL 0.2 mg/dL (0.2-1.0); CALCIUM 8.6 mg/dL (8.5-10.1); CREATININE 1.73 mg/dL (0.55-1.02); TOTAL PROTEIN 6.6 g/dL (6.4-8.2); TROPONIN I < 0.015 ng/mL (0.000-0.045)
[2019-10-29 05:49] LABS: INTERNATIONAL NORMALIZED RATIO 2.25 (0.93-1.1)
[2019-10-29] MEDS: PANTOPROZOLE 40MG TABLET PO SCH (06:18)
[2019-10-29] MEDS: INSULIN LISPRO 100 UNITS/ML, PEN SQ-INSULIN SCH ×4 (07:00→20:45)
[2019-10-29] MEDS: FUROSEMIDE 40 MG/4 ML IV SCH ×2 (09:00→10:26)
[2019-10-29] MEDS ORDERED: RIOCIGUAT 1 MG PO SCH (09:00)
[2019-10-29] MEDS: TEMPLATE NON-FORMULARY MED. (Macitentan** (Opsumit**) 10 MG) PO SCH (09:00)
[2019-10-29] MEDS: VENLAFAXINE HCL 225 MG PO SCH (09:00)
[2019-10-29] MEDS: SOTALOL 80MG TABLET PO SCH ×2 (10:27→18:42)
[2019-10-29] MEDS: ACYCLOVIR 800 MG TABLET PO SCH (10:56)
[2019-10-29] MEDS: ADEMPAS 2.5 MG HOMEMEDPO SCH (11:30)
[2019-10-29] MEDS ORDERED: ACETAMINOPHEN 325 MG TABLET PO PRN (15:30)
[2019-10-29] MEDS: GABAPENTIN 100 MG CAPSULE PO SCH ×2 (16:23→20:37)
[2019-10-29] MEDS ORDERED: WARFARIN 7.5 MG TABLET PO-COUM ONE (18:00)
[2019-10-29] MEDS: PRAVASTATIN 40 MG TABLET PO SCH (20:37)
[2019-10-29] MEDS: RIOCIGUAT PO SCH (20:38)
[2019-10-29] MEDS ORDERED: TRIAZOLAM 0.5 MG HOMEMEDPO PRN (22:30)
[2019-10-29] MEDS: OLANZAPINE 2.5 MG TABLET PO SCH (22:53)
[2019-10-29] MEDS: CYCLOBENZAPRINE 10 MG TABLET PO PRN (22:54)
[2019-10-29] MEDS: LAMOTRIGINE 25 MG TABLET PO SCH (22:54)
[2019-10-30 01:08] VITALS: BP 95/60
[2019-10-30 05:54] VITALS: BP 88/49
[2019-10-30] MEDS: SOTALOL 80MG TABLET PO SCH (06:01)
[2019-10-30] MEDS: PANTOPROZOLE 40MG TABLET PO SCH (06:01)
[2019-10-30 06:02] LABS: INTERNATIONAL NORMALIZED RATIO 2.17 (0.93-1.1); PROTHROMBIN TIME 23.2 Seconds (9.6-11.5)
[2019-10-30 06:06] LABS: ALBUMIN 3.2 g/dL (3.4-5.0); CALCIUM 8.6 mg/dL (8.5-10.1); CHLORIDE 101 mmol/L (98-107)
[2019-10-30 06:12] LABS: ALANINE AMINOTRANSFERASE 26 U/L (12-78); ALKALINE PHOSPHATASE 75 U/L (45-117); ANION GAP 7 mmol/L (5-15); BILIRUBIN,TOTAL 0.3 mg/dL (0.2-1.0); CREATININE 1.89 mg/dL (0.55-1.02); TOTAL PROTEIN 6.6 g/dL (6.4-8.2)
[2019-10-30] MEDS: INSULIN LISPRO 100 UNITS/ML, PEN SQ-INSULIN SCH ×4 (07:00→20:58)
[2019-10-30 07:25] VITALS: BP 93/53
[2019-10-30 08:28] VITALS: BP 100/61
[2019-10-30] MEDS: GABAPENTIN 100 MG CAPSULE PO SCH ×2 (08:30→20:47)
[2019-10-30] MEDS: LAMOTRIGINE 25 MG TABLET PO SCH ×2 (08:31→20:48)
[2019-10-30] MEDS: ADEMPAS 2.5 MG HOMEMEDPO SCH (08:32)
[2019-10-30] MEDS: TEMPLATE NON-FORMULARY MED. (Macitentan** (Opsumit**) 10 MG) PO SCH (08:33)
[2019-10-30] MEDS: VENLAFAXINE HCL 225 MG PO SCH (08:33)
[2019-10-30] MEDS: FUROSEMIDE 40 MG TABLET PO SCH (08:38)
[2019-10-30] MEDS: ACYCLOVIR 800 MG TABLET PO SCH (08:40)
[2019-10-30] MEDS ORDERED: SODIUM CHLORIDE 0.9% 1,000 ML IV SCH (13:46)
[2019-10-30 14:40] VITALS: BP 100/60
[2019-10-30] MEDS ORDERED: SOTALOL 80MG TABLET PO SCH (18:00)
[2019-10-30] MEDS ORDERED: WARFARIN 7.5 MG TABLET PO-COUM SCH (18:00)
[2019-10-30 19:42] VITALS: BP 106/69
[2019-10-30] MEDS ORDERED: TRIAZOLAM 0.25 MG HOMEMEDPO PRN (20:04)
[2019-10-30] MEDS: MAGNESIUM HYDROXIDE 8%, 30ML UDC PO SCH (20:46)
[2019-10-30] MEDS: PRAVASTATIN 40 MG TABLET PO SCH (20:48)
[2019-10-30] MEDS: RIOCIGUAT PO SCH (20:49)
[2019-10-30] MEDS: OLANZAPINE 2.5 MG TABLET PO SCH (20:49)
[2019-10-30] MEDS: CYCLOBENZAPRINE 10 MG TABLET PO PRN (20:49)
[2019-10-31 01:30] VITALS: BP 89/47
[2019-10-31] MEDS: PANTOPROZOLE 40MG TABLET PO SCH (05:52)
[2019-10-31 05:53] LABS: BASOPHILS # (AUTO) 0.03 x10^3/uL (0-0.1); BASOPHILS % (AUTO) 0 % (0-1); EOSINOPHILS # (AUTO) 0.46 x10^3/uL (0-0.4); EOSINOPHILS % (AUTO) 7 % (1-7); LYMPHOCYTES # (AUTO) 2.13 x10^3/uL (1-3.4); LYMPHOCYTES % (AUTO) 30 % (22-44); MD NO; MEAN CORPUSCULAR HEMOGLOBIN 30.1 pg (27.0-34.8); MEAN CORPUSCULAR HGB CONC 33.1 g/dL (32.4-35.8); MEAN CORPUSCULAR VOLUME 90.9 fL (80-100); MEAN PLATELET VOLUME 8.3 fL (7.4-10.4); MONOCYTES # (AUTO) 0.53 x10^3/uL (0.2-0.8); MONOCYTES % (AUTO) 8 % (2-9); NEUTROPHILS # (AUTO) 3.87 x10^3/uL (1.8-6.8); NEUTROPHILS % (AUTO) 55 % (42-75); PLATELET COUNT 179 x10^3/uL (130-400); RED BLOOD COUNT 3.56 x10^6/uL (3.82-5.3); RED CELL DISTRIBUTION WIDTH 20.2 % (9.6-15.2)
[2019-10-31 05:55] LABS: INTERNATIONAL NORMALIZED RATIO 2.19 (0.93-1.1); PROTHROMBIN TIME 23.4 Seconds (9.6-11.5)
[2019-10-31 06:03] LABS: ALBUMIN 3.1 g/dL (3.4-5.0); ANION GAP 5 mmol/L (5-15); CALCIUM 8.9 mg/dL (8.5-10.1); CHLORIDE 106 mmol/L (98-107)
[2019-10-31 06:04] LABS: CREATININE 1.42 mg/dL (0.55-1.02)
[2019-10-31] MEDS: INSULIN LISPRO 100 UNITS/ML, PEN SQ-INSULIN SCH ×4 (07:00→21:00)
[2019-10-31 07:28] VITALS: BP 92/53
[2019-10-31] MEDS: MAGNESIUM HYDROXIDE 8%, 30ML UDC PO SCH ×2 (07:45→21:00)
[2019-10-31] MEDS: VENLAFAXINE HCL 225 MG PO SCH (08:52)
[2019-10-31] MEDS: ADEMPAS 2.5 MG HOMEMEDPO SCH (08:52)
[2019-10-31] MEDS: TEMPLATE NON-FORMULARY MED. (Macitentan** (Opsumit**) 10 MG) PO SCH (08:52)
[2019-10-31] MEDS: ACYCLOVIR 800 MG TABLET PO SCH (08:52)
[2019-10-31] MEDS: GABAPENTIN 100 MG CAPSULE PO SCH ×2 (08:53→21:21)
[2019-10-31] MEDS: LAMOTRIGINE 25 MG TABLET PO SCH ×2 (08:53→21:21)
[2019-10-31] MEDS: FUROSEMIDE 40 MG TABLET PO SCH (09:00)
[2019-10-31 10:04] VITALS: BP 93/57
[2019-10-31] MEDS ORDERED: LIDOCAINE 1%, 20ML ONE (13:13)
[2019-10-31] MEDS ORDERED: FENTANYL PF 250 MCG/5ML ONE (13:25)
[2019-10-31] MEDS ORDERED: ROCURONIUM 10MG/ML,5ML ONE (13:37)
[2019-10-31] MEDS ORDERED: SUCCINYLCHOLINE 20 MG/ML, 10ML ONE (13:37)
[2019-10-31] MEDS ORDERED: ONDANSETRON 2MG/ML, 2ML ONE (13:37)
[2019-10-31] MEDS ORDERED: DEXAMETHASONE 4 MG/ML, 1ML ONE (13:37)
[2019-10-31] MEDS ORDERED: PROPOFOL 10 MG/ML, 20ML ONE (13:37)
[2019-10-31] MEDS ORDERED: ISOPROTERENOL 0.2MG/ML, 5ML ONE (14:44)
[2019-10-31] MEDS ORDERED: DIPHENHYDRAMINE 50 MG/ML, 1ML IVPush PRN (16:00)
[2019-10-31] MEDS ORDERED: EPHEDRINE 50 MG/ML, 1ML IM PRN (16:00)
[2019-10-31] MEDS ORDERED: OXYcodone 5 MG/5 ML ORAL.SOL UDC PO PRN (16:00)
[2019-10-31] MEDS ORDERED: ONDANSETRON ODT 8 MG PO PRN (16:00)
[2019-10-31] MEDS ORDERED: ONDANSETRON 2MG/ML, 2ML IV PRN (16:00)
[2019-10-31] MEDS ORDERED: DIAZEPAM 5 MG/ML, 2ML IVPush PRN (16:00)
[2019-10-31] MEDS ORDERED: ACETAMINOPHEN 325 MG TABLET PO PRN (16:00)
[2019-10-31] MEDS ORDERED: EPHEDRINE 50 MG/ML, 1ML IVPush PRN (16:00)
[2019-10-31] MEDS ORDERED: FENTANYL PF 100 MCG/2ML IV PRN (16:00)
[2019-10-31] MEDS ORDERED: PROMETHAZINE 25 MG/ML, 1ML IV PRN (16:00)
[2019-10-31] MEDS ORDERED: HYDROmorphone 2 MG/ML, 1ML IVPush PRN (16:00)
[2019-10-31] MEDS ORDERED: OXYcodone 5 MG/5 ML ORAL.SOL UDC ONE (16:14)
[2019-10-31] MEDS ORDERED: CYCLOBENZAPRINE 10 MG TABLET ONE (16:14)
[2019-10-31] MEDS: CYCLOBENZAPRINE 10 MG TABLET PO PRN (16:18)
[2019-10-31 17:40] VITALS: BP 107/64
[2019-10-31] MEDS ORDERED: WARFARIN 7.5 MG TABLET PO-COUM ONE (18:00)
[2019-10-31 18:43] VITALS: BP 109/64
[2019-10-31] MEDS ORDERED: LIDODERM 5% PATCH TD SCH (20:30)
[2019-10-31] MEDS ORDERED: LIDODERM 5% PATCH TD ONE (20:30)
[2019-10-31] MEDS: RIOCIGUAT PO SCH (21:00)
[2019-10-31] MEDS: OLANZAPINE 2.5 MG TABLET PO SCH (21:21)
[2019-10-31] MEDS: PRAVASTATIN 40 MG TABLET PO SCH (21:21)
[2019-11-01 01:08] VITALS: BP 105/58
[2019-11-01 05:34] LABS: INTERNATIONAL NORMALIZED RATIO 1.94 (0.93-1.1); PROTHROMBIN TIME 20.7 Seconds (9.6-11.5)
[2019-11-01] MEDS: PANTOPROZOLE 40MG TABLET PO SCH (06:10)
[2019-11-01 06:53] VITALS: BP 112/58
[2019-11-01] MEDS: INSULIN LISPRO 100 UNITS/ML, PEN SQ-INSULIN SCH (07:00)
[2019-11-01] MEDS: MAGNESIUM HYDROXIDE 8%, 30ML UDC PO SCH (07:34)
[2019-11-01] MEDS: ADEMPAS 2.5 MG HOMEMEDPO SCH (08:04)
[2019-11-01] MEDS: VENLAFAXINE HCL 225 MG PO SCH (08:05)
[2019-11-01] MEDS: TEMPLATE NON-FORMULARY MED. (Macitentan** (Opsumit**) 10 MG) PO SCH (08:05)
[2019-11-01] MEDS: ACYCLOVIR 800 MG TABLET PO SCH (08:06)
[2019-11-01] MEDS: GABAPENTIN 100 MG CAPSULE PO SCH (08:06)
[2019-11-01] MEDS: LAMOTRIGINE 25 MG TABLET PO SCH (08:06)
[2019-11-01 08:07] VITALS: BP 101/55
[2019-11-01] MEDS: FUROSEMIDE 40 MG TABLET PO SCH (08:07)
[2019-11-01] MEDS ORDERED: LIDODERM REMOVE PATCH NOTE XX SCH (09:00)
[2019-11-01] MEDS ORDERED: VERA180T6 PO (09:48)
[2019-11-01] MEDS ORDERED: WARFARIN 7.5 MG TABLET PO-COUM SCH (18:00)
[2019-11-02] MEDS ORDERED: VERAPAMIL ER 180MG TABLET.ER PO SCH (09:00)
== END 2019-11-01 11:00 | disposition home or self-care (01) | DRG 273 ==
LOC: ED 16:06 → EDIP 16:07 → SUATTDRO 17:15 → ED 18:29 → 5SO 22:04 → DCLOUNGE 11-01 10:52
PROVIDERS: ADMIT Hospitalist; ATTEND Family Medicine
PROC: 02583ZZ Destruction of Conduction Mechanism, Percutaneous Approach (ICD-10-PCS; 2019-10-31)
PROC: 4A0234Z Measurement of Cardiac Electrical Activity, Percutaneous Approach (ICD-10-PCS; 2019-10-31)
PROC: 02K83ZZ Map Conduction Mechanism, Percutaneous Approach (ICD-10-PCS; 2019-10-31)
PROC: 4A023FZ Measurement of Cardiac Rhythm, Percutaneous Approach (ICD-10-PCS; principal; 2019-10-31 14:00)
DX: I48.0 Paroxysmal atrial fibrillation (principal); I50.33 Acute on chronic diastolic (congestive) heart failure; D68.69 Other thrombophilia; I13.0 Hypertensive heart and chronic kidney disease with heart failure and stage 1 through stage 4 chronic kidney disease, or unspecified chronic kidney disease; J96.11 Chronic respiratory failure with hypoxia; N17.9 Acute kidney failure, unspecified; E11.22 Type 2 diabetes mellitus with diabetic chronic kidney disease; E66.9 Obesity, unspecified; Z68.33 Body mass index [BMI] 33.0-33.9, adult; Z88.2 Allergy status to sulfonamides; Z88.8 Allergy status to other drugs, medicaments and biological substances; E78.5 Hyperlipidemia, unspecified; F31.9 Bipolar disorder, unspecified; I27.29 Other secondary pulmonary hypertension; I27.81 Cor pulmonale (chronic); I50.82 Biventricular heart failure; J44.9 Chronic obstructive pulmonary disease, unspecified; M79.7 Fibromyalgia; N18.3 Chronic kidney disease, stage 3 (moderate); Z79.01 Long term (current) use of anticoagulants; Z82.49 Family history of ischemic heart disease and other diseases of the circulatory system; Z86.711 Personal history of pulmonary embolism; Z86.718 Personal history of other venous thrombosis and embolism; Z86.72 Personal history of thrombophlebitis; Z87.891 Personal history of nicotine dependence; Z90.710 Acquired absence of both cervix and uterus; I48.3 Typical atrial flutter; K21.9 Gastro-esophageal reflux disease without esophagitis
CPT/HCPCS: 36415; 93613; 93621; 93653; 96374; 99285; J3490; 71045; 80053; 80069; 82962; 83735; 83880; 84439; 84443; 84484; 85025; 85610; 85730; 93005; 93306; 93312; 93321; 93325; C1732; C1894; G0378; J1100; J1940; J2405; J2704; J3010; C1730; J0330; J1815

== ENCOUNTER 2020-02-03 22:00 | Inpatient (IN) | payer BC, MEDICARE ==
[~2020-02-03] VITALS: Ht 175.3 cm; Wt 108.9 kg
[~2020-02-03 22:00] MED LIST changes: +FURO20TA3 PO; +GABA300C10 PO; +METOPROLOL PO; +OLAN7.5T5 PO; +VERA180T6 PO; +[UNRECOGNIZED DRUG - OTHER]
[2020-02-03] MEDS ORDERED: SODIUM CHLORIDE 0.9% 1,000ML IVBOLUS ONE (22:30)
[2020-02-03] MEDS ORDERED: SODIUM CHLORIDE FLUSH 10ML SYR IVF ONE (22:30)
[2020-02-03 22:56] LABS: BASOPHILS # (AUTO) 0.03 x10^3/uL (0-0.1); BASOPHILS % (AUTO) 1 % (0-1); EOSINOPHILS % (AUTO) 2 % (1-7); LYMPHOCYTES % (AUTO) 35 % (22-44); MD NO; MEAN CORPUSCULAR HEMOGLOBIN 31.4 pg (27.0-34.8); MEAN CORPUSCULAR HGB CONC 33.3 g/dL (32.4-35.8); MEAN CORPUSCULAR VOLUME 94.3 fL (80-100); MEAN PLATELET VOLUME 8.9 fL (7.4-10.4); MONOCYTES # (AUTO) 0.46 x10^3/uL (0.2-0.8); MONOCYTES % (AUTO) 8 % (2-9); NEUTROPHILS # (AUTO) 2.97 x10^3/uL (1.8-6.8); NEUTROPHILS % (AUTO) 54 % (42-75); PLATELET COUNT 171 x10^3/uL (130-400); RED BLOOD COUNT 3.72 x10^6/uL (3.82-5.3); RED CELL DISTRIBUTION WIDTH 13.8 % (9.6-15.2)
[2020-02-03 22:57] LABS: INTERNATIONAL NORMALIZED RATIO 3.17 (0.93-1.1)
[2020-02-03 22:58] LABS: ALANINE AMINOTRANSFERASE 19 U/L (12-78); ALBUMIN 3.7 g/dL (3.4-5.0); ANION GAP 6 mmol/L (5-15); CALCIUM 8.2 mg/dL (8.5-10.1); CHLORIDE 105 mmol/L (98-107)
[2020-02-03 23:03] LABS: ALKALINE PHOSPHATASE 70 U/L (45-117); BILIRUBIN,TOTAL 0.4 mg/dL (0.2-1.0); CREATININE 4.23 mg/dL (0.55-1.02); TOTAL PROTEIN 7.3 g/dL (6.4-8.2); TROPONIN I < 0.015 ng/mL (0.000-0.045)
[2020-02-03] MEDS ORDERED: SODIUM BICARBONATE 1 MEQ/ML, 50ML VIAL ONE (23:28)
[2020-02-03] MEDS ORDERED: DEXTROSE 50%, 50ML SYRINGE ONE (23:28)
[2020-02-03] MEDS ORDERED: FUROSEMIDE 40 MG/4 ML ONE (23:28)
[2020-02-03] MEDS ORDERED: CALCIUM GLUCONATE 4.6 MEQ/10 ML ONE (23:28)
[2020-02-03] MEDS ORDERED: INSULIN SINGLE DOSE, ER ONE (23:29)
[2020-02-03] MEDS ORDERED: SODIUM BICARB 8.4%, 50ML SYRINGE IVPush ONE (23:30)
[2020-02-03] MEDS ORDERED: CALCIUM GLUCONATE 4.6 MEQ/10 ML IVPush ONE (23:30)
[2020-02-03] MEDS ORDERED: FUROSEMIDE 40 MG/4 ML IVPush ONE (23:30)
[2020-02-03] MEDS ORDERED: INSULIN REGULAR 100 UNITS/ML, 3ML VIAL IVPush ONE (23:30)
[2020-02-03] MEDS ORDERED: DEXTROSE 50%, 50ML SYRINGE IVPush ONE (23:30)
[2020-02-03] MEDS ORDERED: CALCIUM CHLORIDE 10%, 10ML SYR ONE (23:37)
--- NOTE | 2020-02-03 23:55 | NUR ---
Pt medicated per emar. Before administration of lasix, pt stated she felt dizzy.. therefore this nurse will wait until she feels more steady to administer lasix.
[2020-02-04] MEDS ORDERED: SODIUM CHLORIDE FLUSH 10ML SYR IVF PRN
--- NOTE | 2020-02-04 | NUR ---
Notified MD of bp 78/35. MD stated to give additional 500 ml bolus.
[2020-02-04] MEDS ORDERED: POTASSIUM PO (00:28)
[2020-02-04] MEDS ORDERED: IRON PO (00:28)
[2020-02-04] MEDS ORDERED: WARF1TAB PO (00:28)
[2020-02-04] MEDS ORDERED: RIOC1TAB PO (00:28)
[2020-02-04] MEDS ORDERED: VICODIN PO (00:28)
[2020-02-04] MEDS ORDERED: CYCLOBENZAPRINE 10 MG TABLET PO PRN (00:30)
[2020-02-04] MEDS ORDERED: SODIUM CHLORIDE 0.9% 1,000ML IVBOLUS ONE (00:30)
[2020-02-04] MEDS ORDERED: ZOLPIDEM 10MG TABLET PO SCH (00:30)
--- NOTE | 2020-02-04 00:59 | NUR ---
BREAK RN: REPORT TO DEBORAH SINGH ON TELE. PT BEING TRANSPORTED WITH ALL BELONGINGS.
[2020-02-04] MEDS ORDERED: POLYETHYLENE GLYCOL 17 GM PACKET PO PRN (01:00)
[2020-02-04] MEDS ORDERED: ACETAMINOPHEN 325 MG TABLET PO PRN (01:00)
[2020-02-04] MEDS ORDERED: ONDANSETRON ODT 4 MG PO PRN (01:00)
[2020-02-04] MEDS ORDERED: BISACODYL 10 MG SUPP PR PRN (01:00)
[2020-02-04 01:12] VITALS: BP 106/65
[2020-02-04] MEDS ORDERED: NORCO MC SCH (01:30)
[2020-02-04] MEDS: SODIUM CHLORIDE 0.9% 1,000 ML IV SCH ×3 (01:33→16:10)
[2020-02-04] MEDS ORDERED: LAMOTRIGINE 25 MG TABLET PO ONE (02:30)
[2020-02-04] MEDS ORDERED: OLANZAPINE 2.5 MG TABLET PO ONE (02:30)
[2020-02-04] MEDS: TRIAZOLAM 0.25 MG HOMEMEDPO PRN ×2 (03:29→21:42)
[2020-02-04 04:09] LABS: MICROSCOPIC NOT IND
[2020-02-04 04:17] LABS: CHLORIDE,URINE RANDOM 87 mmol/L; POTASSIUM,URINE RANDOM 36 mmol/L; SODIUM,URINE RANDOM 67 mmol/L
[2020-02-04] MEDS: INSULIN LISPRO 100 UNITS/ML, PEN SQ-INSULIN SCH ×4 (05:30→21:49)
[2020-02-04 06:09] LABS: INTERNATIONAL NORMALIZED RATIO 2.98 (0.93-1.1); PROTHROMBIN TIME 31.9 Seconds (9.6-11.5)
[2020-02-04 06:10] LABS: BASOPHILS # (AUTO) 0.03 x10^3/uL (0-0.1); BASOPHILS % (AUTO) 0 % (0-1); EOSINOPHILS % (AUTO) 2 % (1-7); LYMPHOCYTES # (AUTO) 1.84 x10^3/uL (1-3.4); LYMPHOCYTES % (AUTO) 29 % (22-44); MD NO; MEAN CORPUSCULAR HEMOGLOBIN 31.1 pg (27.0-34.8); MEAN CORPUSCULAR VOLUME 94.3 fL (80-100); MEAN PLATELET VOLUME 9.2 fL (7.4-10.4); MONOCYTES # (AUTO) 0.44 x10^3/uL (0.2-0.8); MONOCYTES % (AUTO) 7 % (2-9); NEUTROPHILS # (AUTO) 3.85 x10^3/uL (1.8-6.8); NEUTROPHILS % (AUTO) 62 % (42-75); PLATELET COUNT 156 x10^3/uL (130-400); RED BLOOD COUNT 3.42 x10^6/uL (3.82-5.3); RED CELL DISTRIBUTION WIDTH 14.3 % (9.6-15.2)
[2020-02-04 06:16] LABS: ANION GAP 6 mmol/L (5-15); CALCIUM 8.6 mg/dL (8.5-10.1); CHLORIDE 108 mmol/L (98-107); CREATININE 3.46 mg/dL (0.55-1.02)
[2020-02-04 06:41] VITALS: BP 90/57
[2020-02-04] MEDS: ASCORBIC ACID 500 MG TABLET PO SCH (09:00)
[2020-02-04] MEDS: GABAPENTIN 100 MG CAPSULE PO SCH ×2 (09:00→21:43)
[2020-02-04] MEDS: ADEMPAS 2.5 MG HOMEMEDPO SCH (09:00)
[2020-02-04] MEDS: VENLAFAXINE 75 MG CAP ER PO SCH (09:00)
[2020-02-04] MEDS: CHOLECALCIFEROL 1,000 UNIT TABLET PO SCH (09:01)
[2020-02-04] MEDS: LAMOTRIGINE 25 MG TABLET PO SCH ×2 (09:01→21:42)
[2020-02-04] MEDS: MAGNESIUM OXIDE 400 MG TABLET PO SCH (09:02)
[2020-02-04] MEDS: PANTOPRAZOLE 40MG TABLET PO SCH (09:02)
[2020-02-04] MEDS: SENNA/DOCUSATE TABLET PO SCH (09:03)
[2020-02-04] MEDS ORDERED: SODIUM ZIRCONIUM CYCLOSILICATE 5 GM PO ONE (09:30)
[2020-02-04 13:09] VITALS: BP 95/54
[2020-02-04 21:35] VITALS: BP 124/72
[2020-02-04] MEDS: OLANZAPINE 2.5 MG TABLET PO SCH (21:42)
[2020-02-04] MEDS: OMEGA-3/FISH OIL CAPSULE PO SCH (21:42)
[2020-02-04] MEDS: PRAVASTATIN 40 MG TABLET PO SCH (21:43)
[2020-02-04] MEDS: RIOCIGUAT HOMEMEDPO SCH (21:43)
[2020-02-05] MEDS: SODIUM CHLORIDE 0.9% 1,000 ML IV SCH ×2 (01:24→07:43)
[2020-02-05 01:25] VITALS: BP 109/63
[2020-02-05] MEDS: INSULIN LISPRO 100 UNITS/ML, PEN SQ-INSULIN SCH ×4 (07:42→21:00)
[2020-02-05] MEDS: ADEMPAS 2.5 MG HOMEMEDPO SCH (07:43)
[2020-02-05] MEDS: SENNA/DOCUSATE TABLET PO SCH (07:44)
[2020-02-05] MEDS: PANTOPRAZOLE 40MG TABLET PO SCH (07:44)
[2020-02-05] MEDS: CHOLECALCIFEROL 1,000 UNIT TABLET PO SCH (07:45)
[2020-02-05] MEDS: GABAPENTIN 100 MG CAPSULE PO SCH ×2 (07:45→21:00)
[2020-02-05] MEDS: LAMOTRIGINE 25 MG TABLET PO SCH ×2 (07:45→21:32)
[2020-02-05] MEDS: ASCORBIC ACID 500 MG TABLET PO SCH (07:45)
[2020-02-05] MEDS: VENLAFAXINE 75 MG CAP ER PO SCH (07:45)
[2020-02-05] MEDS: MAGNESIUM OXIDE 400 MG TABLET PO SCH (07:45)
[2020-02-05 07:55] VITALS: BP 124/64
[2020-02-05] MEDS ORDERED: DEXTROSE 50%, 50ML SYRINGE IVPush PRN (09:30)
[2020-02-05] MEDS ORDERED: GLUCAGON 1 MG IM PRN (09:30)
[2020-02-05] MEDS ORDERED: DEXTROSE 4 GM TAB.CHEW PO PRN (09:30)
[2020-02-05] MEDS: SODIUM CHLORIDE FLUSH 10ML SYR IVF SCH ×2 (09:30→21:00)
[2020-02-05 11:01] LABS: ANION GAP 5 mmol/L (5-15); CALCIUM 8.9 mg/dL (8.5-10.1); CHLORIDE 116 mmol/L (98-107)
[2020-02-05 11:02] LABS: CREATININE 1.57 mg/dL (0.55-1.02)
[2020-02-05 13:28] VITALS: BP 111/65
[2020-02-05] MEDS ORDERED: HYDROcodone/APAP 5/325 TABLET ONE (14:03)
[2020-02-05] MEDS: RIOCIGUAT HOMEMEDPO SCH (21:00)
[2020-02-05 21:10] VITALS: BP 130/70
[2020-02-05] MEDS: OMEGA-3/FISH OIL CAPSULE PO SCH (21:32)
[2020-02-05] MEDS: OLANZAPINE 2.5 MG TABLET PO SCH (21:32)
[2020-02-05] MEDS: PRAVASTATIN 40 MG TABLET PO SCH (21:33)
[2020-02-05] MEDS: TRIAZOLAM 0.25 MG HOMEMEDPO PRN (23:20)
[2020-02-06 03:00] VITALS: BP 108/50
[2020-02-06 06:53] LABS: ANION GAP 6 mmol/L (5-15); CALCIUM 9.5 mg/dL (8.5-10.1); CHLORIDE 115 mmol/L (98-107); CREATININE 1.08 mg/dL (0.55-1.02)
[2020-02-06] MEDS: INSULIN LISPRO 100 UNITS/ML, PEN SQ-INSULIN SCH ×2 (07:00→11:00)
[2020-02-06] MEDS: SENNA/DOCUSATE TABLET PO SCH (09:00)
[2020-02-06] MEDS: PANTOPRAZOLE 40MG TABLET PO SCH (10:17)
[2020-02-06] MEDS: LAMOTRIGINE 25 MG TABLET PO SCH (10:17)
[2020-02-06] MEDS: GABAPENTIN 100 MG CAPSULE PO SCH (10:17)
[2020-02-06] MEDS: VENLAFAXINE 75 MG CAP ER PO SCH (10:17)
[2020-02-06] MEDS: ASCORBIC ACID 500 MG TABLET PO SCH (10:17)
[2020-02-06] MEDS: MAGNESIUM OXIDE 400 MG TABLET PO SCH (10:17)
[2020-02-06] MEDS: CHOLECALCIFEROL 1,000 UNIT TABLET PO SCH (10:17)
[2020-02-06] MEDS: SODIUM CHLORIDE FLUSH 10ML SYR IVF SCH (10:18)
[2020-02-06] MEDS: ADEMPAS 2.5 MG HOMEMEDPO SCH (10:18)
[2020-02-06 10:21] VITALS: BP 144/69
[2020-02-06 10:53] LABS: INTERNATIONAL NORMALIZED RATIO 1.52 (0.93-1.1); PROTHROMBIN TIME 16.2 Seconds (9.6-11.5)
[2020-02-06] MEDS ORDERED: WARFARIN 7.5 MG TABLET PO-COUM SCH (18:00)
== END 2020-02-06 12:31 | disposition home or self-care (01) | DRG 683 ==
LOC: ED 02-04 00:33 → EDIP 02-04 00:48 → 5SO 02-04 01:04 → DCLOUNGE 02-06 12:26
PROVIDERS: ADMIT Family Medicine; ATTEND Family Medicine
DX: N17.0 Acute kidney failure with tubular necrosis (principal); D68.59 Other primary thrombophilia; I13.0 Hypertensive heart and chronic kidney disease with heart failure and stage 1 through stage 4 chronic kidney disease, or unspecified chronic kidney disease; I50.32 Chronic diastolic (congestive) heart failure; J96.10 Chronic respiratory failure, unspecified whether with hypoxia or hypercapnia; I48.92 Unspecified atrial flutter; D64.9 Anemia, unspecified; E11.22 Type 2 diabetes mellitus with diabetic chronic kidney disease; E78.5 Hyperlipidemia, unspecified; E87.5 Hyperkalemia; F31.9 Bipolar disorder, unspecified; I27.20 Pulmonary hypertension, unspecified; I48.0 Paroxysmal atrial fibrillation; K21.9 Gastro-esophageal reflux disease without esophagitis; M19.90 Unspecified osteoarthritis, unspecified site; M79.7 Fibromyalgia; F41.1 Generalized anxiety disorder; E66.9 Obesity, unspecified; N18.3 Chronic kidney disease, stage 3 (moderate); Z79.01 Long term (current) use of anticoagulants; Z79.4 Long term (current) use of insulin; Z81.8 Family history of other mental and behavioral disorders; Z86.711 Personal history of pulmonary embolism; Z86.718 Personal history of other venous thrombosis and embolism; Z87.891 Personal history of nicotine dependence; Z90.710 Acquired absence of both cervix and uterus; Z88.2 Allergy status to sulfonamides; Z88.8 Allergy status to other drugs, medicaments and biological substances; Z68.35 Body mass index [BMI] 35.0-35.9, adult
CPT/HCPCS: 36415; 71045; 80048; 80053; 81003; 82436; 82570; 82962; 83880; 84132; 84133; 84300; 84484; 85025; 85610; 85730; 93005; 96361; 96374; 96375; G0378; J1815; J1940; J0610; J7030

== ENCOUNTER 2020-02-07 10:04 | Inpatient (IN) | payer BC, MEDICARE ==
[~2020-02-07] VITALS: Ht 175.3 cm; Wt 111.3 kg
[~2020-02-07 10:04] MED LIST changes: +IRON PO; +POTASSIUM PO; +VICODIN PO; +WARF1TAB2 PO
[2020-02-07] MEDS ORDERED: SODIUM CHLORIDE FLUSH 10ML SYR IVF ONE (10:30)
--- NOTE | 2020-02-07 10:33 | NUR ---
PT IN ROOM AND IN GOWN. CARDIAC, NIBP, AND O2 MONITORING IN PLACE. CRASH CART IN ROOM AND PT IS PLACED OF PADS AT THIS TIME.
[2020-02-07] MEDS ORDERED: PROPOFOL 10 MG/ML, 20ML ONE (10:35)
[2020-02-07 10:52] LABS: ALBUMIN 3.6 g/dL (3.4-5.0); ANION GAP 9 mmol/L (5-15); CALCIUM 9.8 mg/dL (8.5-10.1); CHLORIDE 116 mmol/L (98-107); CREATININE 1.22 mg/dL (0.55-1.02)
[2020-02-07 11:02] LABS: MEAN CORPUSCULAR HEMOGLOBIN 31.2 pg (27.0-34.8); MEAN CORPUSCULAR VOLUME 94.5 fL (80-100); MEAN PLATELET VOLUME 8.6 fL (7.4-10.4); PLATELET COUNT 201 x10^3/uL (130-400); RED BLOOD COUNT 4.11 x10^6/uL (3.82-5.3); RED CELL DISTRIBUTION WIDTH 13.9 % (9.6-15.2)
[2020-02-07 11:14] LABS: BASOPHILS # (AUTO) 0.03 x10^3/uL (0-0.1); BASOPHILS % (AUTO) 0 % (0-1); EOSINOPHILS # (AUTO) 0.08 x10^3/uL (0-0.4); EOSINOPHILS % (AUTO) 1 % (1-7); LYMPHOCYTES # (AUTO) 1.65 x10^3/uL (1-3.4); LYMPHOCYTES % (AUTO) 23 % (22-44); MD SCAN; MONOCYTES # (AUTO) 0.71 x10^3/uL (0.2-0.8); MONOCYTES % (AUTO) 10 % (2-9); NEUTROPHILS # (AUTO) 4.86 x10^3/uL (1.8-6.8); NEUTROPHILS % (AUTO) 66 % (42-75)
[2020-02-07 11:15] LABS: INTERNATIONAL NORMALIZED RATIO 1.73 (0.93-1.1); PROTHROMBIN TIME 18.4 Seconds (9.6-11.5)
[2020-02-07] MEDS ORDERED: SODIUM CHLORIDE FLUSH 10ML SYR IVF PRN (12:00)
--- NOTE | 2020-02-07 12:33 | NUR ---
Med rec completed to assist RN
[2020-02-07] MEDS ORDERED: ADENOSINE 6 MG/2 ML ONE (12:59)
[2020-02-07 13:22] VITALS: BP 115/69
[2020-02-07 14:00] VITALS: BP 110/64
[2020-02-07] MEDS ORDERED: PROMETHAZINE 25 MG/ML, 1ML IM PRN (14:30)
[2020-02-07] MEDS ORDERED: morphine SULFATE 10 MG/ML, 1ML IVPush PRN (14:30)
[2020-02-07] MEDS ORDERED: LABETALOL 5MG/ML, 20ML IVPush PRN (14:30)
[2020-02-07] MEDS ORDERED: ONDANSETRON 2MG/ML, 2ML IVPush PRN (14:30)
[2020-02-07] MEDS ORDERED: hydrALAzine 20 MG/ML, 1ML IVPush PRN (14:30)
[2020-02-07] MEDS ORDERED: HEPARIN 5,000 UNITS/ML, 1ML IV ONE (15:00)
[2020-02-07] MEDS: HEPARIN 25,000 UNITS/250ML PMX 250 ML IV PRN (15:10)
[2020-02-07] MEDS: ACETAMINOPHEN 325 MG TABLET PO PRN (15:47)
[2020-02-07] MEDS: INSULIN LISPRO 100 UNITS/ML, PEN SQ-INSULIN SCH ×2 (16:00→21:00)
[2020-02-07 18:01] LABS: MICROSCOPIC NOT IND
[2020-02-07 19:52] VITALS: BP 126/80
[2020-02-07] MEDS ORDERED: GABAPENTIN 300 MG CAPSULE PO SCH (21:00)
[2020-02-07] MEDS: OLANZAPINE 2.5 MG TABLET PO SCH (21:21)
[2020-02-07] MEDS: OMEGA-3/FISH OIL CAPSULE PO SCH (21:21)
[2020-02-07] MEDS: PRAVASTATIN 40 MG TABLET PO SCH (21:21)
[2020-02-07] MEDS: LAMOTRIGINE 100 MG TABLET PO SCH (21:22)
[2020-02-07] MEDS: HEPARIN 5,000 UNITS/ML, 1ML IV PRN (22:11)
[2020-02-08 01:51] VITALS: BP 109/65
[2020-02-08 04:38] LABS: BASOPHILS # (AUTO) 0.02 x10^3/uL (0-0.1); BASOPHILS % (AUTO) 0 % (0-1); EOSINOPHILS % (AUTO) 3 % (1-7); LYMPHOCYTES # (AUTO) 2.84 x10^3/uL (1-3.4); LYMPHOCYTES % (AUTO) 44 % (22-44); MD NO; MEAN CORPUSCULAR HGB CONC 32.6 g/dL (32.4-35.8); MEAN CORPUSCULAR VOLUME 95.4 fL (80-100); MEAN PLATELET VOLUME 8.1 fL (7.4-10.4); MONOCYTES # (AUTO) 0.54 x10^3/uL (0.2-0.8); MONOCYTES % (AUTO) 8 % (2-9); NEUTROPHILS # (AUTO) 2.92 x10^3/uL (1.8-6.8); NEUTROPHILS % (AUTO) 45 % (42-75); PLATELET COUNT 168 x10^3/uL (130-400); RED BLOOD COUNT 4.08 x10^6/uL (3.82-5.3); RED CELL DISTRIBUTION WIDTH 13.8 % (9.6-15.2)
[2020-02-08 04:50] LABS: ALANINE AMINOTRANSFERASE 17 U/L (12-78); ALBUMIN 3.3 g/dL (3.4-5.0); ANION GAP 6 mmol/L (5-15); CHLORIDE 110 mmol/L (98-107)
[2020-02-08 04:55] LABS: ALKALINE PHOSPHATASE 68 U/L (45-117); BILIRUBIN,TOTAL 0.6 mg/dL (0.2-1.0)
[2020-02-08] MEDS: HEPARIN 5,000 UNITS/ML, 1ML IV PRN ×2 (05:05→12:01)
[2020-02-08] MEDS: PANTOPRAZOLE 40MG TABLET PO SCH (05:06)
[2020-02-08 06:39] VITALS: BP 110/81
[2020-02-08] MEDS: INSULIN LISPRO 100 UNITS/ML, PEN SQ-INSULIN SCH ×4 (07:00→21:53)
[2020-02-08] MEDS: MAGNESIUM OXIDE 400 MG TABLET PO SCH (08:36)
[2020-02-08] MEDS: VENLAFAXINE 75 MG CAP ER PO SCH (08:36)
[2020-02-08] MEDS: LAMOTRIGINE 100 MG TABLET PO SCH ×2 (08:37→21:50)
[2020-02-08] MEDS: ACYCLOVIR 800 MG TABLET PO SCH (08:37)
[2020-02-08] MEDS: ASPIRIN 81 MG TABLET CHEW PO SCH (08:37)
[2020-02-08] MEDS: GABAPENTIN 100 MG CAPSULE PO SCH ×2 (08:37→16:59)
[2020-02-08] MEDS: FUROSEMIDE 20 MG TABLET PO SCH (08:37)
[2020-02-08] MEDS: CHOLECALCIFEROL 1,000 UNIT TABLET PO SCH (08:37)
[2020-02-08] MEDS: TEMPLATE NON-FORMULARY MED. (Macitentan** (Opsumit**) 10 MG) HOMEMEDPO SCH (08:38)
[2020-02-08] MEDS: HEPARIN 25,000 UNITS/250ML PMX 250 ML IV PRN (10:19)
[2020-02-08 12:24] VITALS: BP 127/65
[2020-02-08 19:14] VITALS: BP 119/76
[2020-02-08] MEDS: PRAVASTATIN 40 MG TABLET PO SCH (21:50)
[2020-02-08] MEDS: OMEGA-3/FISH OIL CAPSULE PO SCH (21:50)
[2020-02-08] MEDS: OLANZAPINE 2.5 MG TABLET PO SCH (21:50)
[2020-02-09 02:00] VITALS: BP 102/63
[2020-02-09] MEDS: HEPARIN 25,000 UNITS/250ML PMX 250 ML IV PRN (02:12)
[2020-02-09] MEDS: PANTOPRAZOLE 40MG TABLET PO SCH (05:08)
[2020-02-09 05:43] LABS: BASOPHILS # (AUTO) 0.03 x10^3/uL (0-0.1); BASOPHILS % (AUTO) 1 % (0-1); EOSINOPHILS # (AUTO) 0.25 x10^3/uL (0-0.4); EOSINOPHILS % (AUTO) 4 % (1-7); LYMPHOCYTES # (AUTO) 2.33 x10^3/uL (1-3.4); LYMPHOCYTES % (AUTO) 37 % (22-44); MD NO; MEAN CORPUSCULAR HEMOGLOBIN 30.9 pg (27.0-34.8); MEAN CORPUSCULAR HGB CONC 32.7 g/dL (32.4-35.8); MEAN CORPUSCULAR VOLUME 94.6 fL (80-100); MEAN PLATELET VOLUME 8.2 fL (7.4-10.4); MONOCYTES # (AUTO) 0.49 x10^3/uL (0.2-0.8); MONOCYTES % (AUTO) 8 % (2-9); NEUTROPHILS # (AUTO) 3.19 x10^3/uL (1.8-6.8); NEUTROPHILS % (AUTO) 51 % (42-75); PLATELET COUNT 170 x10^3/uL (130-400); RED BLOOD COUNT 4.01 x10^6/uL (3.82-5.3); RED CELL DISTRIBUTION WIDTH 14.1 % (9.6-15.2)
[2020-02-09 05:50] LABS: CHLORIDE 110 mmol/L (98-107)
[2020-02-09 05:59] LABS: ALANINE AMINOTRANSFERASE 19 U/L (12-78); ALBUMIN 3.4 g/dL (3.4-5.0); ALKALINE PHOSPHATASE 68 U/L (45-117); ANION GAP 9 mmol/L (5-15); BILIRUBIN,TOTAL 0.5 mg/dL (0.2-1.0); CALCIUM 9.1 mg/dL (8.5-10.1); CREATININE 1.15 mg/dL (0.55-1.02)
[2020-02-09 06:28] VITALS: BP 113/68
[2020-02-09] MEDS: INSULIN LISPRO 100 UNITS/ML, PEN SQ-INSULIN SCH ×4 (06:41→22:01)
[2020-02-09] MEDS: CHOLECALCIFEROL 1,000 UNIT TABLET PO SCH (08:20)
[2020-02-09] MEDS: ASPIRIN 81 MG TABLET CHEW PO SCH (08:20)
[2020-02-09] MEDS: GABAPENTIN 100 MG CAPSULE PO SCH ×2 (08:20→17:04)
[2020-02-09] MEDS: LAMOTRIGINE 100 MG TABLET PO SCH ×2 (08:20→21:52)
[2020-02-09] MEDS: ACYCLOVIR 800 MG TABLET PO SCH (08:20)
[2020-02-09] MEDS: FUROSEMIDE 20 MG TABLET PO SCH (08:21)
[2020-02-09] MEDS: TEMPLATE NON-FORMULARY MED. (Macitentan** (Opsumit**) 10 MG) HOMEMEDPO SCH (08:21)
[2020-02-09] MEDS: MAGNESIUM OXIDE 400 MG TABLET PO SCH (08:21)
[2020-02-09] MEDS: VENLAFAXINE 75 MG CAP ER PO SCH (08:21)
[2020-02-09] MEDS: SODIUM CHLORIDE 0.9% 1,000 ML IV SCH ×2 (11:32→21:53)
[2020-02-09] MEDS: ACETAMINOPHEN 325 MG TABLET PO PRN (11:45)
[2020-02-09 12:25] VITALS: BP 116/68
[2020-02-09] MEDS ORDERED: FENTANYL PF 100 MCG/2ML ONE (15:56)
[2020-02-09] MEDS ORDERED: MIDAZOLAM 1 MG/ML, 5ML ONE (15:56)
[2020-02-09] MEDS ORDERED: VERAPAMIL 2.5 MG/ML, 2ML ONE (15:56)
[2020-02-09] MEDS ORDERED: LIDOCAINE-MPF 1%, 5ML ONE (15:57)
[2020-02-09] MEDS ORDERED: BIVALIRUDIN 250 MG ONE (15:57)
[2020-02-09] MEDS ORDERED: HEPARIN 1,000 UNITS/ML, 10ML ONE (15:57)
[2020-02-09] MEDS ORDERED: LIDOCAINE 2%, 20ML ONE (16:03)
[2020-02-09] MEDS: CYCLOBENZAPRINE 10 MG TABLET PO PRN (17:50)
[2020-02-09 20:21] VITALS: BP 129/67
[2020-02-09] MEDS: OMEGA-3/FISH OIL CAPSULE PO SCH (21:52)
[2020-02-09] MEDS: OLANZAPINE 2.5 MG TABLET PO SCH (21:52)
[2020-02-09] MEDS: PRAVASTATIN 40 MG TABLET PO SCH (21:52)
[2020-02-10 01:10] VITALS: BP 122/75
[2020-02-10] MEDS: PANTOPRAZOLE 40MG TABLET PO SCH (05:06)
[2020-02-10 05:40] LABS: CHLORIDE 110 mmol/L (98-107)
[2020-02-10 05:45] LABS: ALANINE AMINOTRANSFERASE 18 U/L (12-78); ALBUMIN 3.2 g/dL (3.4-5.0); ALKALINE PHOSPHATASE 67 U/L (45-117); ANION GAP 5 mmol/L (5-15); BILIRUBIN,TOTAL 0.7 mg/dL (0.2-1.0); CALCIUM 8.9 mg/dL (8.5-10.1); CREATININE 1.19 mg/dL (0.55-1.02); TOTAL PROTEIN 6.8 g/dL (6.4-8.2)
[2020-02-10 06:39] VITALS: BP 118/71
[2020-02-10] MEDS: INSULIN LISPRO 100 UNITS/ML, PEN SQ-INSULIN SCH ×4 (07:00→21:14)
[2020-02-10] MEDS ORDERED: FENTANYL PF 100 MCG/2ML ONE (07:47)
[2020-02-10] MEDS ORDERED: MIDAZOLAM 1 MG/ML, 5ML ONE (07:47)
[2020-02-10] MEDS ORDERED: CEFAZOLIN 1,000 MG ONE (07:48)
[2020-02-10] MEDS ORDERED: LIDOCAINE 2%, 20ML ONE (07:48)
[2020-02-10] MEDS: TEMPLATE NON-FORMULARY MED. (Macitentan** (Opsumit**) 10 MG) HOMEMEDPO SCH (09:00)
[2020-02-10] MEDS: FUROSEMIDE 20 MG TABLET PO SCH ×2 (09:00→09:52)
[2020-02-10] MEDS ORDERED: HOLD MEDICATION MC PRN (09:30)
[2020-02-10] MEDS: LAMOTRIGINE 100 MG TABLET PO SCH ×2 (09:51→23:13)
[2020-02-10] MEDS: CHOLECALCIFEROL 1,000 UNIT TABLET PO SCH (09:51)
[2020-02-10] MEDS: ACYCLOVIR 800 MG TABLET PO SCH (09:51)
[2020-02-10] MEDS: MAGNESIUM OXIDE 400 MG TABLET PO SCH (09:51)
[2020-02-10] MEDS: ASPIRIN 81 MG TABLET CHEW PO SCH (09:51)
[2020-02-10] MEDS: GABAPENTIN 100 MG CAPSULE PO SCH ×2 (09:51→16:44)
[2020-02-10] MEDS: VENLAFAXINE 75 MG CAP ER PO SCH (09:52)
[2020-02-10] MEDS: CYCLOBENZAPRINE 10 MG TABLET PO PRN ×2 (10:03→16:44)
[2020-02-10] MEDS: SODIUM CHLORIDE 0.9% 1,000 ML IV SCH ×2 (10:08→23:18)
[2020-02-10] MEDS: VERAPAMIL 180 MG CAP. ER PO SCH (11:15)
[2020-02-10] MEDS: SOTALOL 80MG TABLET PO SCH ×2 (11:15→17:49)
[2020-02-10] MEDS: LIDODERM 5% PATCH TD SCH (11:17)
[2020-02-10 12:05] VITALS: BP 119/73
[2020-02-10 21:22] VITALS: BP 102/70
[2020-02-10] MEDS: OLANZAPINE 2.5 MG TABLET PO SCH (23:12)
[2020-02-10] MEDS: OMEGA-3/FISH OIL CAPSULE PO SCH (23:12)
[2020-02-10] MEDS: PRAVASTATIN 40 MG TABLET PO SCH (23:13)
[2020-02-10] MEDS: SODIUM CHLORIDE FLUSH 10ML SYR IVF SCH (23:15)
[2020-02-11 00:39] VITALS: BP 114/69
[2020-02-11 05:04] LABS: BASOPHILS # (AUTO) 0.03 x10^3/uL (0-0.1); BASOPHILS % (AUTO) 0 % (0-1); EOSINOPHILS % (AUTO) 3 % (1-7); LYMPHOCYTES # (AUTO) 2.03 x10^3/uL (1-3.4); LYMPHOCYTES % (AUTO) 29 % (22-44); MD NO; MEAN CORPUSCULAR HEMOGLOBIN 31.2 pg (27.0-34.8); MEAN CORPUSCULAR HGB CONC 32.8 g/dL (32.4-35.8); MEAN CORPUSCULAR VOLUME 95.3 fL (80-100); MEAN PLATELET VOLUME 8.2 fL (7.4-10.4); MONOCYTES % (AUTO) 10 % (2-9); NEUTROPHILS # (AUTO) 3.99 x10^3/uL (1.8-6.8); NEUTROPHILS % (AUTO) 58 % (42-75); PLATELET COUNT 149 x10^3/uL (130-400); RED BLOOD COUNT 3.42 x10^6/uL (3.82-5.3)
[2020-02-11 05:05] LABS: ANION GAP 3 mmol/L (5-15); CALCIUM 8.5 mg/dL (8.5-10.1); CHLORIDE 112 mmol/L (98-107)
[2020-02-11 05:09] LABS: ALANINE AMINOTRANSFERASE 18 U/L (12-78); ALKALINE PHOSPHATASE 64 U/L (45-117); BILIRUBIN,TOTAL 0.4 mg/dL (0.2-1.0); CREATININE 1.15 mg/dL (0.55-1.02); TOTAL PROTEIN 6.5 g/dL (6.4-8.2)
[2020-02-11] MEDS: SOTALOL 80MG TABLET PO SCH (06:05)
[2020-02-11] MEDS: PANTOPRAZOLE 40MG TABLET PO SCH (06:05)
[2020-02-11] MEDS: SODIUM CHLORIDE 0.9% 1,000 ML IV SCH (06:05)
[2020-02-11] MEDS: INSULIN LISPRO 100 UNITS/ML, PEN SQ-INSULIN SCH ×2 (07:00→11:00)
[2020-02-11 07:50] VITALS: BP 109/66
[2020-02-11 09:58] VITALS: BP 118/72
[2020-02-11] MEDS: VENLAFAXINE 75 MG CAP ER PO SCH (10:01)
[2020-02-11] MEDS: MAGNESIUM OXIDE 400 MG TABLET PO SCH (10:01)
[2020-02-11] MEDS: ASPIRIN 81 MG TABLET CHEW PO SCH (10:01)
[2020-02-11] MEDS: CHOLECALCIFEROL 1,000 UNIT TABLET PO SCH (10:02)
[2020-02-11] MEDS: ACYCLOVIR 800 MG TABLET PO SCH (10:02)
[2020-02-11] MEDS: GABAPENTIN 100 MG CAPSULE PO SCH (10:02)
[2020-02-11] MEDS: LAMOTRIGINE 100 MG TABLET PO SCH (10:02)
[2020-02-11] MEDS: SODIUM CHLORIDE FLUSH 10ML SYR IVF SCH (10:03)
[2020-02-11] MEDS: TEMPLATE NON-FORMULARY MED. (Macitentan** (Opsumit**) 10 MG) HOMEMEDPO SCH (10:03)
[2020-02-11] MEDS: FUROSEMIDE 20 MG TABLET PO SCH (10:04)
[2020-02-11] MEDS: VERAPAMIL 180 MG CAP. ER PO SCH (10:04)
[2020-02-11] MEDS: ACETAMINOPHEN 325 MG TABLET PO PRN (10:09)
[2020-02-11] MEDS ORDERED: VERA180C4 PO (10:58)
[2020-02-11] MEDS ORDERED: SOTA80TA18 PO (10:58)
[2020-02-11] MEDS: LIDODERM 5% PATCH TD SCH (11:30)
[2020-02-11 12:00] LABS: INTERNATIONAL NORMALIZED RATIO 1.13 (0.93-1.1)
[2020-02-11] MEDS ORDERED: WARFARIN 7.5 MG TABLET PO-COUM SCH (18:00)
== END 2020-02-11 13:50 | disposition home or self-care (01) | DRG 242 ==
LOC: ED 11:23 → EDIP 11:38 → 5SO 13:17 → DCLOUNGE 02-11 13:48
PROVIDERS: ADMIT Internal Medicine Infectious Disease; ATTEND Internal Medicine
PROC: 5A2204Z Restoration of Cardiac Rhythm, Single (ICD-10-PCS; 2020-02-07)
PROC: 4A023N7 Measurement of Cardiac Sampling and Pressure, Left Heart, Percutaneous Approach (ICD-10-PCS; 2020-02-09)
PROC: B215YZZ Fluoroscopy of Left Heart using Other Contrast (ICD-10-PCS; 2020-02-09)
PROC: B211YZZ Fluoroscopy of Multiple Coronary Arteries using Other Contrast (ICD-10-PCS; 2020-02-09)
PROC: 0JH606Z Insertion of Pacemaker, Dual Chamber into Chest Subcutaneous Tissue and Fascia, Open Approach (ICD-10-PCS; principal; 2020-02-10)
PROC: 02H63JZ Insertion of Pacemaker Lead into Right Atrium, Percutaneous Approach (ICD-10-PCS; 2020-02-10)
PROC: 02HK3JZ Insertion of Pacemaker Lead into Right Ventricle, Percutaneous Approach (ICD-10-PCS; 2020-02-10)
DX: I49.5 Sick sinus syndrome (principal); I21.4 Non-ST elevation (NSTEMI) myocardial infarction; I13.0 Hypertensive heart and chronic kidney disease with heart failure and stage 1 through stage 4 chronic kidney disease, or unspecified chronic kidney disease; I50.32 Chronic diastolic (congestive) heart failure; J96.11 Chronic respiratory failure with hypoxia; N17.9 Acute kidney failure, unspecified; J98.11 Atelectasis; I48.92 Unspecified atrial flutter; I48.0 Paroxysmal atrial fibrillation; E11.22 Type 2 diabetes mellitus with diabetic chronic kidney disease; E78.5 Hyperlipidemia, unspecified; F31.9 Bipolar disorder, unspecified; I27.20 Pulmonary hypertension, unspecified; N18.3 Chronic kidney disease, stage 3 (moderate); K21.9 Gastro-esophageal reflux disease without esophagitis; Z79.01 Long term (current) use of anticoagulants; Z86.711 Personal history of pulmonary embolism; Z86.718 Personal history of other venous thrombosis and embolism; Z90.710 Acquired absence of both cervix and uterus; Z95.0 Presence of cardiac pacemaker; Z88.2 Allergy status to sulfonamides; Z88.8 Allergy status to other drugs, medicaments and biological substances; Z90.89 Acquired absence of other organs; E66.9 Obesity, unspecified; Z68.36 Body mass index [BMI] 36.0-36.9, adult; Z79.84 Long term (current) use of oral hypoglycemic drugs
CPT/HCPCS: 33208; 36005; 36415; 93454; 99291; J3490; 71045; 80048; 80053; 81003; 82040; 82962; 84443; 84484; 85025; 85520; 85610; 85730; 93005; 99152; 99156; 99157; C1760; C1769; C1779; C1785; C1892; C1894; G0378; J0153; J0583; J0690; J1644; J2250; J3010; J7030; Q9967

== ENCOUNTER 2020-07-23 10:04 | Inpatient (IN) | payer BC, MEDICARE ==
[~2020-07-23] VITALS: Ht 175.3 cm; Wt 99.8 kg
[~2020-07-23 10:04] MED LIST changes: +ASCO100018 PO; -ASCO10004 PO; +SOTA80TA18 PO; +VERA180C4 PO
[2020-07-23] MEDS ORDERED: SODIUM CHLORIDE 0.9% 1,000ML IVBOLUS ONE (11:30)
--- NOTE | 2020-07-23 11:40 | NUR ---
pt resting comfortably in bed at this time. bp, cardiac, and o2 monitoring in place at this time. 2 liters ns running via pressure bags at this time. left arm iv dc'd due to patency. shay pantoja in room to establish 2nd line. bp q 5 min on monitor. pt remains calm coopertive, and axox4 with no distress noted.
[2020-07-23 11:52] LABS: BASOPHILS % (AUTO) 0 % (0-1); EOSINOPHILS % (AUTO) 0 % (1-7); LYMPHOCYTES % (AUTO) 16 % (22-44); MEAN CORPUSCULAR HEMOGLOBIN 32.8 pg (27.0-34.8); MEAN CORPUSCULAR HGB CONC 33.1 g/dL (32.4-35.8); MEAN PLATELET VOLUME 9.4 fL (7.4-10.4); MONOCYTES % (AUTO) 10 % (2-9); NEUTROPHILS % (AUTO) 74 % (42-75); PLATELET COUNT 165 x10^3/uL (130-400); RED BLOOD COUNT 3.43 x10^6/uL (3.82-5.3); RED CELL DISTRIBUTION WIDTH 13.6 % (9.6-15.2)
[2020-07-23 11:56] LABS: MD NO
[2020-07-23 12:05] LABS: INTERNATIONAL NORMALIZED RATIO 4.31 (0.93-1.1)
[2020-07-23 12:07] LABS: ALANINE AMINOTRANSFERASE 18 U/L (12-78); ALBUMIN 3.3 g/dL (3.4-5.0); ANION GAP 12 mmol/L (5-15); CALCIUM 8.8 mg/dL (8.5-10.1); CHLORIDE 106 mmol/L (98-107); CREATININE 3.04 mg/dL (0.55-1.02)
[2020-07-23 12:10] LABS: ALKALINE PHOSPHATASE 63 U/L (45-117); BILIRUBIN,TOTAL 0.4 mg/dL (0.2-1.0); TOTAL PROTEIN 7.5 g/dL (6.4-8.2)
[2020-07-23] MEDS ORDERED: NOREPINEPHRINE 8 MG in SODIUM CHLORIDE 0.9% 242 ML IV PRN (13:00)
--- NOTE | 2020-07-23 13:01 | NUR ---
PT MEDICATED IN PICV ATR THIS TIME,. CVENTRAL LINE SET UP FOR
--- NOTE | 2020-07-23 13:47 | NUR ---
PER DR JORDAN WHO SPOKE WITH DR EMERY REGARDING PTS HYPOTENSION. DR EMERY STATED THAT PT TAKES ADEMPAS FOR ARTERIAL PULMONARY HTN. IF THE PTS BP REMAINS UNDER 90 WHILE OFF THIS MED THEN START THE CENTRAL LINE AND LEVOPHED. PT BP WHILE IN ROOM AT THIS TIME 85/26. PT AT BEDSIDE COMMODE AND DENIES DIZZINESS OR LIGHTHEADEDNESS WHILE STANDING BUT PULSE WENT UP TO 80 AND BP WAS 70/56. PROVIDER MADE AWARE.
--- NOTE | 2020-07-23 14:03 | NUR ---
SPOKE WITH MD REGARDING PTS ORTHOSTATIC HYPOTENSION UPON GETTING TO BEDSIDE COMMODE. VERBAL ORDER FOR 4TH LITER NS
[2020-07-23] MEDS ORDERED: CEFTRIAXONE PMX 1GM/50ML 50 ML ONE (14:11)
[2020-07-23] MEDS ORDERED: AZITHROMYCIN 500 MG in SODIUM CHLORIDE 0.9% 250 ML IV ONE (14:30)
[2020-07-23] MEDS ORDERED: CYCLOBENZAPRINE 10 MG TABLET PO PRN (14:30)
[2020-07-23] MEDS ORDERED: SODIUM CHLORIDE 0.9%, 500ML IVBOLUS ONE (14:30)
[2020-07-23] MEDS ORDERED: CEFTRIAXONE PMX 1GM/50ML 50 ML IVPB ONE (14:30)
[2020-07-23] MEDS ORDERED: ONDANSETRON 2MG/ML, 2ML ONE (15:13)
[2020-07-23] MEDS ORDERED: ONDANSETRON 2MG/ML, 2ML IVPush ONE (15:30)
--- NOTE | 2020-07-23 15:50 | NUR ---
per pharmacy remdezivir will be ready at 1700
[2020-07-23] MEDS ORDERED: DEXAMETHASONE 4 MG/ML, 1ML ONE (15:55)
[2020-07-23] MEDS: INSULIN LISPRO 100 UNITS/ML, PEN SQ-INSULIN SCH ×2 (16:00→23:15)
[2020-07-23] MEDS ORDERED: LORazepam 2 MG/ML, 1ML IVPush PRN (16:00)
[2020-07-23] MEDS: BENZONATATE 100 MG CAPSULE PO SCH ×2 (16:00→23:18)
[2020-07-23] MEDS ORDERED: ACETAMINOPHEN 325 MG TABLET PO PRN (16:00)
[2020-07-23] MEDS ORDERED: RIOCIGUAT 1 MG PO SCH (16:00)
[2020-07-23] MEDS: DEXAMETHASONE 4 MG/ML, 1ML IVPush SCH (16:00)
--- NOTE | 2020-07-23 16:17 | NUR ---
BREAK RN": PT RESTING IN ROOM. NO ACUTE DISTRESS NOTED. CALL LIGHT IN PLACE. WILL CONTINUE TO MONITOR WHILE PRIMARY RN IS ON BREAK.
--- NOTE | 2020-07-23 16:47 | NUR ---
REPORT GIVEN TO SAMANTHA CASTANEDA
[2020-07-23] MEDS: ASCORBIC ACID 500 MG TABLET PO SCH (17:00)
[2020-07-23] MEDS ORDERED: REMDESIVIR 100 MG in SODIUM CHLORIDE 0.9% 250 ML IVPB ONE (17:00)
--- NOTE | 2020-07-23 17:12 | NUR ---
MEDS GIVEN TO PHARMACY UNTIL PT MOVED TO FLOOR
--- NOTE | 2020-07-23 17:40 | NUR ---
CALLED PHARMACY FOR REMDESIVIR. PER PHARMACY READY IN 10 MINUTES
[2020-07-23] MEDS: SOTALOL 80MG TABLET PO SCH (18:00)
--- NOTE | 2020-07-23 18:06 | NUR ---
PT PLACED ON HOSPITAL BED. REMDESIVIR STARTED PER ORDER.
--- NOTE | 2020-07-23 20:16 | NUR ---
SPOKE TO MD REGARDING PATIENT B/P AND WHEN TO NOTIFY. MD STATED TO NOTIFIED HER WHEN MAP IS <60. PATIENT IS ALSO AWARE OF THIS. MD STATED TO HOLD SOTALOL THIS EVENING D/T B/P BEING LOW. LAST B/P
--- NOTE | 2020-07-23 20:53 | NUR ---
Spoke to Dr. Aviles regarding patient b/p again. Patient b/p 91/33. Md gave verbal order to start maintains fluids LR at 125ml/hr.
[2020-07-23] MEDS ORDERED: (Riociguat** (Adempas**) 2.5 MG) HOMEMEDPO SCH ×2 (21:00)
[2020-07-23] MEDS ORDERED: LACTATED RINGERS 2,000 ML IV ONE (21:00)
[2020-07-23 22:45] VITALS: BP 79/41
[2020-07-23] MEDS: OMEGA-3/FISH OIL CAPSULE PO SCH (23:16)
[2020-07-23] MEDS: VENLAFAXINE 75MG TABLET PO SCH (23:16)
[2020-07-23] MEDS: GABAPENTIN 100 MG CAPSULE PO SCH (23:17)
[2020-07-23] MEDS: LAMOTRIGINE 100 MG TABLET PO SCH (23:18)
[2020-07-23] MEDS: GUAIFENESIN ER 600 MG TABLET PO SCH (23:18)
[2020-07-23] MEDS: OLANZAPINE 2.5 MG TABLET PO SCH (23:18)
[2020-07-23] MEDS: PRAVASTATIN 40 MG TABLET PO SCH (23:19)
[2020-07-23] MEDS: MELATONIN 5 MG TABLET PO SCH (23:19)
[2020-07-23 23:23] VITALS: BP 80/48
[2020-07-24] MEDS: ZOLPIDEM 5MG TABLET PO SCH ×2 (00:01→21:10)
[2020-07-24] MEDS: Triazolam 0.25 MG PO SCH ×2 (00:21→21:06)
[2020-07-24 00:24] VITALS: BP 79/42
[2020-07-24] MEDS ORDERED: (Macitentan** (Opsumit**) 10 MG) HOMEMEDPO SCH ×2 (01:00→09:00)
[2020-07-24 01:28] VITALS: BP 72/57
[2020-07-24 01:49] VITALS: BP 68/32
[2020-07-24 02:22] VITALS: BP 72/36
[2020-07-24 03:05] VITALS: BP 103/38
[2020-07-24] MEDS: SOTALOL 80MG TABLET PO SCH (03:52)
[2020-07-24] MEDS: DEXAMETHASONE 4 MG/ML, 1ML IVPush SCH ×3 (03:59→21:52)
[2020-07-24] MEDS: NOREPINEPHRINE 8 MG in SODIUM CHLORIDE 0.9% 242 ML IV PRN (03:59)
[2020-07-24 04:02] LABS: BASOPHILS % (AUTO) 0 % (0-1); EOSINOPHILS % (AUTO) 0 % (1-7); LYMPHOCYTES % (AUTO) 20 % (22-44); MEAN CORPUSCULAR HEMOGLOBIN 32.7 pg (27.0-34.8); MEAN CORPUSCULAR HGB CONC 32.8 g/dL (32.4-35.8); MONOCYTES % (AUTO) 7 % (2-9); NEUTROPHILS % (AUTO) 73 % (42-75); PLATELET COUNT 139 x10^3/uL (130-400); RED BLOOD COUNT 2.79 x10^6/uL (3.82-5.3)
[2020-07-24 04:16] LABS: ALANINE AMINOTRANSFERASE 16 U/L (12-78); ALBUMIN 2.5 g/dL (3.4-5.0); ANION GAP 9 mmol/L (5-15); CALCIUM 7.6 mg/dL (8.5-10.1); CHLORIDE 113 mmol/L (98-107); CREATININE 2.27 mg/dL (0.55-1.02)
[2020-07-24 04:19] LABS: ALKALINE PHOSPHATASE 46 U/L (45-117); BILIRUBIN,TOTAL 0.3 mg/dL (0.2-1.0); TOTAL PROTEIN 5.7 g/dL (6.4-8.2)
[2020-07-24 04:43] LABS: C-REACTIVE PROTEIN, QUANT 7.1 mg/dL (0.02-0.49)
[2020-07-24] MEDS ORDERED: SODIUM BICARB 8.4%, 50ML SYRINGE IVPush ONE (05:00)
[2020-07-24] MEDS ORDERED: CALCIUM CHLORIDE 10%, 10ML SYR IVPush ONE (05:30)
[2020-07-24 05:36] LABS: PROTHROMBIN TIME 65.4 Seconds (9.6-11.5)
[2020-07-24 05:37] LABS: INTERNATIONAL NORMALIZED RATIO 6.28 (0.93-1.1)
[2020-07-24 05:55] LABS: MD SCAN
[2020-07-24] MEDS ORDERED: PHYTONADIONE 10 MG in SODIUM CHLORIDE 0.9% 50 ML IV ONE (06:30)
[2020-07-24] MEDS: PANTOPRAZOLE 40 MG IV IVPush SCH ×2 (06:46→18:00)
[2020-07-24] MEDS: INSULIN LISPRO 100 UNITS/ML, PEN SQ-INSULIN SCH ×4 (08:00→20:58)
[2020-07-24] MEDS ORDERED: PANTOPRAZOLE 40MG TABLET PO SCH (09:00)
[2020-07-24] MEDS ORDERED: VERAPAMIL 180 MG CAP. ER PO SCH (09:00)
[2020-07-24 11:10] LABS: MICROSCOPIC NOT IND
[2020-07-24] MEDS: CHOLECALCIFEROL 5,000u TAB PO SCH (11:13)
[2020-07-24] MEDS: ASCORBIC ACID 500 MG TABLET PO SCH ×2 (11:13→16:02)
[2020-07-24] MEDS: ACYCLOVIR 800 MG TABLET PO SCH (11:13)
[2020-07-24] MEDS: BENZONATATE 100 MG CAPSULE PO SCH ×3 (11:13→21:09)
[2020-07-24] MEDS: GABAPENTIN 100 MG CAPSULE PO SCH ×2 (11:13→21:08)
[2020-07-24] MEDS: GUAIFENESIN ER 600 MG TABLET PO SCH ×2 (11:14→21:09)
[2020-07-24 11:17] LABS: CHLORIDE,URINE RANDOM 13 mmol/L; POTASSIUM,URINE RANDOM 26 mmol/L; SODIUM,URINE RANDOM 20 mmol/L
[2020-07-24] MEDS: ZINC SULFATE 220 MG CAPSULE PO SCH (11:25)
[2020-07-24] MEDS: MAGNESIUM OXIDE 400 MG TABLET PO SCH (11:25)
[2020-07-24] MEDS: VENLAFAXINE 75MG TABLET PO SCH ×3 (11:26→21:09)
[2020-07-24] MEDS: LAMOTRIGINE 100 MG TABLET PO SCH ×2 (13:05→21:08)
[2020-07-24] MEDS: CEFTRIAXONE PMX 2GM/50ML 50 ML IVPB SCH (14:41)
[2020-07-24] MEDS: AZITHROMYCIN 500 MG in SODIUM CHLORIDE 0.9% 250 ML IV SCH (15:21)
[2020-07-24] MEDS: MELATONIN 5 MG TABLET PO SCH (21:06)
[2020-07-24] MEDS: OMEGA-3/FISH OIL CAPSULE PO SCH (21:06)
[2020-07-24] MEDS: OLANZAPINE 2.5 MG TABLET PO SCH (21:08)
[2020-07-24] MEDS: PRAVASTATIN 40 MG TABLET PO SCH (21:09)
[2020-07-24] MEDS: RIOCIGUAT PO SCH (21:13)
[2020-07-25] MEDS: DEXAMETHASONE 4 MG/ML, 1ML IVPush SCH ×2 (03:54→09:00)
[2020-07-25 04:00] VITALS: BP 104/35
[2020-07-25 05:08] LABS: ALANINE AMINOTRANSFERASE 13 U/L (12-78); ALBUMIN 2.5 g/dL (3.4-5.0); ANION GAP 10 mmol/L (5-15); CALCIUM 8.4 mg/dL (8.5-10.1); CHLORIDE 115 mmol/L (98-107)
[2020-07-25 05:10] LABS: INTERNATIONAL NORMALIZED RATIO 1.2 (0.93-1.1); PROTHROMBIN TIME 12.7 Seconds (9.6-11.5)
[2020-07-25 05:11] LABS: ALKALINE PHOSPHATASE 50 U/L (45-117); BILIRUBIN,TOTAL 0.4 mg/dL (0.2-1.0); CREATININE 1.82 mg/dL (0.55-1.02); TOTAL PROTEIN 6.2 g/dL (6.4-8.2)
[2020-07-25] MEDS: PANTOPRAZOLE 40 MG IV IVPush SCH ×2 (06:21→16:48)
[2020-07-25 06:24] LABS: BASOPHILS % (AUTO) 0 % (0-1); EOSINOPHILS % (AUTO) 0 % (1-7); LYMPHOCYTES % (AUTO) 17 % (22-44); MEAN CORPUSCULAR HEMOGLOBIN 32.8 pg (27.0-34.8); MEAN CORPUSCULAR HGB CONC 33.2 g/dL (32.4-35.8); MONOCYTES % (AUTO) 6 % (2-9); NEUTROPHILS % (AUTO) 76 % (42-75); PLATELET COUNT 177 x10^3/uL (130-400); RED BLOOD COUNT 3.06 x10^6/uL (3.82-5.3)
[2020-07-25 07:26] LABS: MD SCAN
[2020-07-25] MEDS: LAMOTRIGINE 100 MG TABLET PO SCH ×2 (07:50→20:41)
[2020-07-25] MEDS: MAGNESIUM OXIDE 400 MG TABLET PO SCH (07:50)
[2020-07-25] MEDS: CHOLECALCIFEROL 5,000u TAB PO SCH (07:50)
[2020-07-25] MEDS: BENZONATATE 100 MG CAPSULE PO SCH ×3 (07:50→20:42)
[2020-07-25] MEDS: GABAPENTIN 100 MG CAPSULE PO SCH ×2 (07:50→20:41)
[2020-07-25] MEDS: ACYCLOVIR 800 MG TABLET PO SCH (07:50)
[2020-07-25] MEDS: ZINC SULFATE 220 MG CAPSULE PO SCH (07:50)
[2020-07-25] MEDS: VENLAFAXINE 75MG TABLET PO SCH ×3 (07:50→20:40)
[2020-07-25] MEDS: ASCORBIC ACID 500 MG TABLET PO SCH ×2 (07:51→16:47)
[2020-07-25] MEDS: (Macitentan** (Opsumit**) 10 MG) HOMEMEDPO SCH (07:51)
[2020-07-25] MEDS: GUAIFENESIN ER 600 MG TABLET PO SCH ×2 (07:51→20:41)
[2020-07-25] MEDS: INSULIN LISPRO 100 UNITS/ML, PEN SQ-INSULIN SCH ×4 (07:57→20:51)
[2020-07-25] MEDS: CEFTRIAXONE PMX 2GM/50ML 50 ML IVPB SCH (14:28)
[2020-07-25] MEDS: AZITHROMYCIN 500 MG in SODIUM CHLORIDE 0.9% 250 ML IV SCH (15:12)
[2020-07-25] MEDS: NOREPINEPHRINE 8 MG in SODIUM CHLORIDE 0.9% 242 ML IV PRN (15:12)
[2020-07-25] MEDS ORDERED: REMDESIVIR 50 MG in SODIUM CHLORIDE 0.9% 250 ML IVPB SCH (17:00)
[2020-07-25] MEDS ORDERED: WARFARIN 5 MG TABLET PO-COUM SCH (18:00)
[2020-07-25] MEDS: ZOLPIDEM 5MG TABLET PO SCH (20:40)
[2020-07-25] MEDS: MELATONIN 5 MG TABLET PO SCH (20:41)
[2020-07-25] MEDS: OMEGA-3/FISH OIL CAPSULE PO SCH (20:41)
[2020-07-25] MEDS: PRAVASTATIN 40 MG TABLET PO SCH (20:42)
[2020-07-25] MEDS: OLANZAPINE 2.5 MG TABLET PO SCH (20:42)
[2020-07-25] MEDS: RIOCIGUAT PO SCH (20:48)
[2020-07-25] MEDS: Triazolam 0.25 MG PO SCH (21:32)
[2020-07-26 04:00] VITALS: BP 96/43
[2020-07-26 04:50] LABS: ALANINE AMINOTRANSFERASE 12 U/L (12-78); ALBUMIN 2.5 g/dL (3.4-5.0); CALCIUM 8.8 mg/dL (8.5-10.1); CHLORIDE 118 mmol/L (98-107)
[2020-07-26 04:52] LABS: ALKALINE PHOSPHATASE 50 U/L (45-117); BILIRUBIN,TOTAL 0.2 mg/dL (0.2-1.0); TOTAL PROTEIN 5.9 g/dL (6.4-8.2)
[2020-07-26 04:56] LABS: ANION GAP < 1 mmol/L (5-15)
[2020-07-26 05:22] LABS: INTERNATIONAL NORMALIZED RATIO 1.11 (0.93-1.1); PROTHROMBIN TIME 11.8 Seconds (9.6-11.5)
[2020-07-26] MEDS: PANTOPRAZOLE 40 MG IV IVPush SCH ×2 (05:28→17:09)
[2020-07-26] MEDS: INSULIN LISPRO 100 UNITS/ML, PEN SQ-INSULIN SCH ×4 (06:12→20:18)
[2020-07-26] MEDS: GABAPENTIN 100 MG CAPSULE PO SCH ×2 (07:21→20:16)
[2020-07-26] MEDS: CHOLECALCIFEROL 5,000u TAB PO SCH (07:22)
[2020-07-26] MEDS: ASCORBIC ACID 500 MG TABLET PO SCH ×2 (07:22→17:10)
[2020-07-26] MEDS: MAGNESIUM OXIDE 400 MG TABLET PO SCH (07:22)
[2020-07-26] MEDS: ACYCLOVIR 800 MG TABLET PO SCH (07:22)
[2020-07-26] MEDS: BENZONATATE 100 MG CAPSULE PO SCH ×3 (07:22→20:16)
[2020-07-26] MEDS: LAMOTRIGINE 100 MG TABLET PO SCH ×2 (07:22→20:16)
[2020-07-26] MEDS: DEXAMETHASONE 4 MG/ML, 1ML IVPush SCH (07:23)
[2020-07-26] MEDS: GUAIFENESIN ER 600 MG TABLET PO SCH ×2 (07:23→20:16)
[2020-07-26] MEDS: ZINC SULFATE 220 MG CAPSULE PO SCH (07:23)
[2020-07-26] MEDS: VENLAFAXINE 75MG TABLET PO SCH ×3 (07:23→20:15)
[2020-07-26] MEDS: (Macitentan** (Opsumit**) 10 MG) HOMEMEDPO SCH (07:30)
[2020-07-26] MEDS ORDERED: SENNA/DOCUSATE TABLET ONE (10:26)
[2020-07-26] MEDS: FUROSEMIDE 20 MG/2 ML IV SCH ×2 (10:31→20:15)
[2020-07-26] MEDS: SENNA/DOCUSATE TABLET PO SCH (10:32)
[2020-07-26] MEDS: CEFTRIAXONE PMX 2GM/50ML 50 ML IVPB SCH (14:38)
[2020-07-26] MEDS: AZITHROMYCIN 500 MG in SODIUM CHLORIDE 0.9% 250 ML IV SCH (14:55)
[2020-07-26] MEDS: REMDESIVIR 100 MG in SODIUM CHLORIDE 0.9% 250 ML IVPB SCH (17:09)
[2020-07-26] MEDS ORDERED: WARFARIN 7.5 MG TABLET PO-COUM ONE (18:00)
[2020-07-26] MEDS: OLANZAPINE 2.5 MG TABLET PO SCH (20:15)
[2020-07-26] MEDS: OMEGA-3/FISH OIL CAPSULE PO SCH (20:16)
[2020-07-26] MEDS: PRAVASTATIN 40 MG TABLET PO SCH (20:16)
[2020-07-26] MEDS: MELATONIN 5 MG TABLET PO SCH (20:16)
[2020-07-26] MEDS: ZOLPIDEM 5MG TABLET PO SCH (20:17)
[2020-07-26] MEDS: Triazolam 0.25 MG PO SCH (20:58)
[2020-07-26] MEDS: RIOCIGUAT PO SCH (20:59)
[2020-07-27] MEDS ORDERED: NOREPINEPHRINE 8 MG in SODIUM CHLORIDE 0.9% 242 ML IV PRN (02:30)
[2020-07-27 04:00] VITALS: BP 101/49
[2020-07-27 05:43] LABS: INTERNATIONAL NORMALIZED RATIO 1.15 (0.93-1.1); PROTHROMBIN TIME 12.2 Seconds (9.6-11.5)
[2020-07-27 05:45] LABS: ALANINE AMINOTRANSFERASE 17 U/L (12-78); ALBUMIN 2.4 g/dL (3.4-5.0); ANION GAP 4 mmol/L (5-15); CALCIUM 8.9 mg/dL (8.5-10.1); CHLORIDE 114 mmol/L (98-107)
[2020-07-27 05:48] LABS: ALKALINE PHOSPHATASE 50 U/L (45-117); BILIRUBIN,TOTAL 0.3 mg/dL (0.2-1.0); CREATININE 0.93 mg/dL (0.55-1.02); TOTAL PROTEIN 5.9 g/dL (6.4-8.2)
[2020-07-27] MEDS: PANTOPRAZOLE 40 MG IV IVPush SCH ×2 (06:27→18:31)
[2020-07-27] MEDS: INSULIN LISPRO 100 UNITS/ML, PEN SQ-INSULIN SCH ×4 (06:27→20:08)
[2020-07-27] MEDS: SENNA/DOCUSATE TABLET PO SCH (09:00)
[2020-07-27] MEDS: BENZONATATE 100 MG CAPSULE PO SCH ×3 (09:11→20:06)
[2020-07-27] MEDS: ACYCLOVIR 800 MG TABLET PO SCH (09:11)
[2020-07-27] MEDS: VENLAFAXINE 75MG TABLET PO SCH ×3 (09:11→20:07)
[2020-07-27] MEDS: CHOLECALCIFEROL 5,000u TAB PO SCH (09:12)
[2020-07-27] MEDS: LAMOTRIGINE 100 MG TABLET PO SCH ×2 (09:12→20:07)
[2020-07-27] MEDS: GABAPENTIN 100 MG CAPSULE PO SCH ×2 (09:12→20:07)
[2020-07-27] MEDS: GUAIFENESIN ER 600 MG TABLET PO SCH ×2 (09:12→20:06)
[2020-07-27] MEDS: ASCORBIC ACID 500 MG TABLET PO SCH ×2 (09:12→16:33)
[2020-07-27] MEDS: MAGNESIUM OXIDE 400 MG TABLET PO SCH (09:12)
[2020-07-27] MEDS: DEXAMETHASONE 4 MG/ML, 1ML IVPush SCH (09:13)
[2020-07-27] MEDS: FUROSEMIDE 20 MG/2 ML IV SCH ×2 (09:13→20:07)
[2020-07-27] MEDS: (Macitentan** (Opsumit**) 10 MG) HOMEMEDPO SCH (09:13)
[2020-07-27] MEDS: ZINC SULFATE 220 MG CAPSULE PO SCH (09:13)
[2020-07-27] MEDS: CEFTRIAXONE PMX 2GM/50ML 50 ML IVPB SCH (14:35)
[2020-07-27] MEDS: AZITHROMYCIN 500 MG in SODIUM CHLORIDE 0.9% 250 ML IV SCH (15:26)
[2020-07-27] MEDS ORDERED: WARFARIN 2 MG TABLET PO-COUM ONE (18:00)
[2020-07-27 19:07] VITALS: BP 111/67
[2020-07-27] MEDS: REMDESIVIR 100 MG in SODIUM CHLORIDE 0.9% 250 ML IVPB SCH (19:48)
[2020-07-27] MEDS: PRAVASTATIN 40 MG TABLET PO SCH (20:06)
[2020-07-27] MEDS: OLANZAPINE 2.5 MG TABLET PO SCH (20:06)
[2020-07-27] MEDS: OMEGA-3/FISH OIL CAPSULE PO SCH (20:07)
[2020-07-27] MEDS: MELATONIN 5 MG TABLET PO SCH (20:07)
[2020-07-27] MEDS: ZOLPIDEM 5MG TABLET PO SCH (20:07)
[2020-07-27] MEDS: RIOCIGUAT PO SCH (20:08)
[2020-07-27] MEDS: Triazolam 0.25 MG PO SCH (22:11)
[2020-07-28 01:04] VITALS: BP 128/73
[2020-07-28] MEDS: PANTOPRAZOLE 40 MG IV IVPush SCH (06:00)
[2020-07-28 06:33] LABS: PLATELET COUNT 180 x10^3/uL (130-400); RED BLOOD COUNT 2.88 x10^6/uL (3.82-5.3); RED CELL DISTRIBUTION WIDTH 13.8 % (9.6-15.2)
[2020-07-28 06:40] VITALS: BP 122/69
[2020-07-28 06:45] LABS: ALBUMIN 2.5 g/dL (3.4-5.0); ANION GAP 5 mmol/L (5-15); CALCIUM 8.7 mg/dL (8.5-10.1); CHLORIDE 112 mmol/L (98-107)
[2020-07-28 06:50] LABS: ALANINE AMINOTRANSFERASE 17 U/L (12-78); ALKALINE PHOSPHATASE 52 U/L (45-117); BILIRUBIN,TOTAL 0.3 mg/dL (0.2-1.0); CREATININE 0.84 mg/dL (0.55-1.02)
[2020-07-28 07:52] LABS: INTERNATIONAL NORMALIZED RATIO 1.34 (0.93-1.1); PROTHROMBIN TIME 14.2 Seconds (9.6-11.5)
[2020-07-28] MEDS: INSULIN LISPRO 100 UNITS/ML, PEN SQ-INSULIN SCH ×4 (08:00→21:26)
[2020-07-28 08:29] LABS: MD YES
[2020-07-28 08:31] LABS: BAND#(MANUAL) 0.23 x10^3/uL; BANDS%(MANUAL) 4 % (0-7); EOS#(MANUAL) 0.06 x10^3/uL (0.0-0.4); EOS% (MANUAL) 1 % (1-7); LYMPH#(MANUAL) 0.91 x10^3/uL (1-3.4); LYMPHS% (MANUAL) 16 % (22-44); METAMYELOCYTES# (MANUAL) 0.11 x10^3/uL (0-0); METAMYELOCYTES% (MANUAL) 2 % (0-1); MONOS#(MANUAL) 0.63 x10^3/uL (0.3-2.7); MONOS% (MANUAL) 11 % (2-9); SEG#(MANUAL) 3.76 x10^3/uL (1.8-6.8); SEGS% (MANUAL) 66 % (42-75)
[2020-07-28 08:32] LABS: <PLATELET ESTIMATE> ADEQUATE; <PLT MORPHOLOGY> NORMAL PLT MORPH; ANISOCYTOSIS 1+; OVALOCYTES 1+
[2020-07-28] MEDS: SENNA/DOCUSATE TABLET PO SCH (09:00)
[2020-07-28] MEDS: (Macitentan** (Opsumit**) 10 MG) HOMEMEDPO SCH (09:00)
[2020-07-28] MEDS: DEXAMETHASONE 4 MG/ML, 1ML IVPush SCH (09:47)
[2020-07-28] MEDS: GABAPENTIN 100 MG CAPSULE PO SCH ×2 (09:47→21:22)
[2020-07-28] MEDS: ASCORBIC ACID 500 MG TABLET PO SCH ×2 (09:47→17:54)
[2020-07-28] MEDS: ACYCLOVIR 800 MG TABLET PO SCH (09:47)
[2020-07-28] MEDS: MAGNESIUM OXIDE 400 MG TABLET PO SCH (09:47)
[2020-07-28] MEDS: GUAIFENESIN ER 600 MG TABLET PO SCH ×2 (09:48→21:22)
[2020-07-28] MEDS: CHOLECALCIFEROL 5,000u TAB PO SCH (09:48)
[2020-07-28] MEDS: VENLAFAXINE 75MG TABLET PO SCH ×3 (09:48→22:41)
[2020-07-28] MEDS: ZINC SULFATE 220 MG CAPSULE PO SCH (09:48)
[2020-07-28] MEDS: LAMOTRIGINE 100 MG TABLET PO SCH ×2 (09:48→21:22)
[2020-07-28] MEDS: BENZONATATE 100 MG CAPSULE PO SCH ×3 (09:48→21:22)
[2020-07-28 12:00] VITALS: BP 129/70
[2020-07-28] MEDS: FUROSEMIDE 40 MG TABLET PO SCH ×2 (12:01→17:55)
[2020-07-28] MEDS: CEFTRIAXONE PMX 2GM/50ML 50 ML IVPB SCH (14:18)
[2020-07-28] MEDS: AZITHROMYCIN 500 MG in SODIUM CHLORIDE 0.9% 250 ML IV SCH (14:18)
[2020-07-28] MEDS ORDERED: WARFARIN 7.5 MG TABLET PO-COUM ONE (18:00)
[2020-07-28 19:14] VITALS: BP 119/67
[2020-07-28] MEDS: TRIAZOLAM 0.5 MG PO SCH (21:00)
[2020-07-28] MEDS: OMEGA-3/FISH OIL CAPSULE PO SCH (21:22)
[2020-07-28] MEDS: MELATONIN 5 MG TABLET PO SCH (21:22)
[2020-07-28] MEDS: ZOLPIDEM 5MG TABLET PO SCH (21:22)
[2020-07-28] MEDS: RIOCIGUAT PO SCH (21:24)
[2020-07-28] MEDS: PRAVASTATIN 40 MG TABLET PO SCH (22:41)
[2020-07-28] MEDS: OLANZAPINE 2.5 MG TABLET PO SCH (22:41)
[2020-07-29 00:55] VITALS: BP 128/74
[2020-07-29] MEDS: PANTOPRAZOLE 40MG TABLET PO SCH ×2 (06:00→18:44)
[2020-07-29] MEDS: INSULIN LISPRO 100 UNITS/ML, PEN SQ-INSULIN SCH ×4 (06:37→21:00)
[2020-07-29] MEDS: ASCORBIC ACID 500 MG TABLET PO SCH ×2 (06:38→18:08)
[2020-07-29 07:08] LABS: BASOPHILS % (AUTO) 0 % (0-1); EOSINOPHILS % (AUTO) 1 % (1-7); LYMPHOCYTES % (AUTO) 21 % (22-44); MEAN CORPUSCULAR HEMOGLOBIN 32.7 pg (27.0-34.8); MEAN CORPUSCULAR HGB CONC 33.6 g/dL (32.4-35.8); MEAN PLATELET VOLUME 7.8 fL (7.4-10.4); MONOCYTES % (AUTO) 9 % (2-9); NEUTROPHILS % (AUTO) 69 % (42-75); PLATELET COUNT 198 x10^3/uL (130-400); RED BLOOD COUNT 3.09 x10^6/uL (3.82-5.3); RED CELL DISTRIBUTION WIDTH 13.4 % (9.6-15.2)
[2020-07-29 07:10] LABS: ALBUMIN 2.7 g/dL (3.4-5.0); ANION GAP 4 mmol/L (5-15); CALCIUM 9.1 mg/dL (8.5-10.1); CHLORIDE 112 mmol/L (98-107)
[2020-07-29 07:18] LABS: ALANINE AMINOTRANSFERASE 19 U/L (12-78); ALKALINE PHOSPHATASE 60 U/L (45-117); BILIRUBIN,TOTAL 0.4 mg/dL (0.2-1.0); CREATININE 1.09 mg/dL (0.55-1.02); TOTAL PROTEIN 6.5 g/dL (6.4-8.2)
[2020-07-29 08:00] VITALS: BP 101/59
[2020-07-29 08:46] LABS: MD SCAN
[2020-07-29] MEDS: (Macitentan** (Opsumit**) 10 MG) HOMEMEDPO SCH (09:00)
[2020-07-29] MEDS: FUROSEMIDE 40 MG TABLET PO SCH ×2 (09:21→18:09)
[2020-07-29] MEDS: ZINC SULFATE 220 MG CAPSULE PO SCH (09:21)
[2020-07-29] MEDS: LAMOTRIGINE 100 MG TABLET PO SCH ×2 (09:21→21:14)
[2020-07-29] MEDS: MAGNESIUM OXIDE 400 MG TABLET PO SCH (09:21)
[2020-07-29] MEDS: GABAPENTIN 100 MG CAPSULE PO SCH ×3 (09:21→21:13)
[2020-07-29] MEDS: ACYCLOVIR 800 MG TABLET PO SCH (09:21)
[2020-07-29] MEDS: SENNA/DOCUSATE TABLET PO SCH (09:22)
[2020-07-29] MEDS: DEXAMETHASONE 4 MG/ML, 1ML IVPush SCH (09:22)
[2020-07-29] MEDS: CHOLECALCIFEROL 5,000u TAB PO SCH (09:22)
[2020-07-29] MEDS: GUAIFENESIN ER 600 MG TABLET PO SCH ×2 (09:22→21:14)
[2020-07-29] MEDS: BENZONATATE 100 MG CAPSULE PO SCH ×3 (09:22→21:14)
[2020-07-29] MEDS: VENLAFAXINE 75MG TABLET PO SCH ×3 (09:22→21:14)
[2020-07-29 12:05] LABS: ALANINE AMINOTRANSFERASE 21 U/L (12-78); ALBUMIN 2.9 g/dL (3.4-5.0); ANION GAP 6 mmol/L (5-15); CALCIUM 9.1 mg/dL (8.5-10.1); CHLORIDE 110 mmol/L (98-107); CREATININE 1.21 mg/dL (0.55-1.02)
[2020-07-29 12:07] LABS: ALKALINE PHOSPHATASE 62 U/L (45-117); BILIRUBIN,TOTAL 0.4 mg/dL (0.2-1.0); TOTAL PROTEIN 6.9 g/dL (6.4-8.2)
[2020-07-29 12:37] LABS: INTERNATIONAL NORMALIZED RATIO 2.34 (0.93-1.1); PROTHROMBIN TIME 24.6 Seconds (9.6-11.5)
[2020-07-29 13:37] VITALS: BP 129/75
[2020-07-29] MEDS: CEFTRIAXONE PMX 2GM/50ML 50 ML IVPB SCH (15:18)
[2020-07-29] MEDS ORDERED: WARFARIN 1 MG TABLET PO-COUM ONE (18:00)
[2020-07-29] MEDS ORDERED: SOTALOL 80MG TABLET PO SCH (18:00)
[2020-07-29] MEDS: SOTALOL 80MG TABLET PO SCH (18:08)
[2020-07-29 20:24] VITALS: BP 118/69
[2020-07-29] MEDS: ZOLPIDEM 5MG TABLET PO SCH ×2 (21:00→21:14)
[2020-07-29] MEDS: OLANZAPINE 2.5 MG TABLET PO SCH (21:13)
[2020-07-29] MEDS: OMEGA-3/FISH OIL CAPSULE PO SCH (21:14)
[2020-07-29] MEDS: MELATONIN 5 MG TABLET PO SCH (21:14)
[2020-07-29] MEDS: PRAVASTATIN 40 MG TABLET PO SCH (21:14)
[2020-07-29] MEDS: RIOCIGUAT PO SCH (21:16)
[2020-07-30 00:22] VITALS: BP 123/77
[2020-07-30] MEDS: TRIAZOLAM 0.5 MG PO SCH (00:29)
[2020-07-30] MEDS: PANTOPRAZOLE 40MG TABLET PO SCH (05:30)
[2020-07-30] MEDS: SOTALOL 80MG TABLET PO SCH (05:30)
[2020-07-30 06:10] LABS: CHLORIDE 109 mmol/L (98-107)
[2020-07-30 06:13] LABS: MEAN CORPUSCULAR HEMOGLOBIN 33.3 pg (27.0-34.8); MEAN CORPUSCULAR HGB CONC 33.8 g/dL (32.4-35.8); MEAN PLATELET VOLUME 7.7 fL (7.4-10.4); PLATELET COUNT 245 x10^3/uL (130-400); RED BLOOD COUNT 3.16 x10^6/uL (3.82-5.3); RED CELL DISTRIBUTION WIDTH 13.5 % (9.6-15.2)
[2020-07-30 06:29] LABS: ALANINE AMINOTRANSFERASE 20 U/L (12-78); ALBUMIN 2.8 g/dL (3.4-5.0); ALKALINE PHOSPHATASE 60 U/L (45-117); ANION GAP 7 mmol/L (5-15); BILIRUBIN,TOTAL 0.4 mg/dL (0.2-1.0); C-REACTIVE PROTEIN, QUANT 1.39 mg/dL (0.02-0.49); CALCIUM 9.1 mg/dL (8.5-10.1); TOTAL PROTEIN 6.7 g/dL (6.4-8.2)
[2020-07-30] MEDS: INSULIN LISPRO 100 UNITS/ML, PEN SQ-INSULIN SCH ×2 (07:00→11:00)
[2020-07-30 07:13] LABS: MD YES
[2020-07-30 07:14] LABS: BANDS%(MANUAL) 2 % (0-7); LYMPHS% (MANUAL) 17 % (22-44); METAMYELOCYTES% (MANUAL) 1 % (0-1); MONOS% (MANUAL) 9 % (2-9); SEGS% (MANUAL) 71 % (42-75)
[2020-07-30 07:15] VITALS: BP 111/66
[2020-07-30 07:15] LABS: <PLATELET ESTIMATE> ADEQUATE; <PLT MORPHOLOGY> NORMAL PLT MORPH; ANISOCYTOSIS 1+; OVALOCYTES 1+; POLYCHROMASIA 1+; TEAR DROPS 1+
[2020-07-30 07:43] LABS: HCT (SEDRATE) 29.5 % (34.6-47.8)
[2020-07-30 08:11] LABS: INTERNATIONAL NORMALIZED RATIO 2.31 (0.93-1.1); PROTHROMBIN TIME 24.3 Seconds (9.6-11.5)
[2020-07-30] MEDS ORDERED: RIOC1TAB PO (08:12)
[2020-07-30] MEDS ORDERED: PRED20TA PO (08:12)
[2020-07-30] MEDS: BENZONATATE 100 MG CAPSULE PO SCH (08:59)
[2020-07-30] MEDS: ZINC SULFATE 220 MG CAPSULE PO SCH (08:59)
[2020-07-30] MEDS: GABAPENTIN 100 MG CAPSULE PO SCH (08:59)
[2020-07-30] MEDS: MAGNESIUM OXIDE 400 MG TABLET PO SCH (08:59)
[2020-07-30] MEDS: LAMOTRIGINE 100 MG TABLET PO SCH (08:59)
[2020-07-30] MEDS: ASCORBIC ACID 500 MG TABLET PO SCH (08:59)
[2020-07-30] MEDS: DEXAMETHASONE 4 MG/ML, 1ML IVPush SCH (08:59)
[2020-07-30] MEDS: ACYCLOVIR 800 MG TABLET PO SCH (08:59)
[2020-07-30] MEDS: GUAIFENESIN ER 600 MG TABLET PO SCH (08:59)
[2020-07-30] MEDS: (Macitentan** (Opsumit**) 10 MG) HOMEMEDPO SCH (09:00)
[2020-07-30] MEDS: VENLAFAXINE 75MG TABLET PO SCH (09:00)
[2020-07-30] MEDS: FUROSEMIDE 40 MG TABLET PO SCH (09:00)
[2020-07-30] MEDS: SENNA/DOCUSATE TABLET PO SCH (09:00)
[2020-07-30] MEDS: CHOLECALCIFEROL 5,000u TAB PO SCH (09:00)
[2020-07-30] MEDS ORDERED: WARFARIN 1 MG TABLET PO-COUM ONE (17:00)
== END 2020-07-30 12:59 | disposition home or self-care (01) | DRG 871 ==
LOC: ED 11:27 → EDIP 15:28 → 4EST 22:29 → CCU 07-24 02:37 → 4EST 07-27 18:43
PROVIDERS: ADMIT Internal Medicine; ATTEND Family Medicine
PROC: XW033E5 Introduction of Remdesivir Anti-infective into Peripheral Vein, Percutaneous Approach, New Technology Group 5 (ICD-10-PCS; 2020-07-23)
PROC: 02HV33Z Insertion of Infusion Device into Superior Vena Cava, Percutaneous Approach (ICD-10-PCS; principal; 2020-07-24)
PROC: B548ZZA Ultrasonography of Superior Vena Cava, Guidance (ICD-10-PCS; 2020-07-24)
DX: A41.89 Other specified sepsis (principal); J12.89 Other viral pneumonia; J96.21 Acute and chronic respiratory failure with hypoxia; N17.0 Acute kidney failure with tubular necrosis; R65.21 Severe sepsis with septic shock; U07.1 COVID-19; E87.2 Acidosis; J81.1 Chronic pulmonary edema; K92.2 Gastrointestinal hemorrhage, unspecified; R71.0 Precipitous drop in hematocrit; Z51.5 Encounter for palliative care; E11.9 Type 2 diabetes mellitus without complications; E87.5 Hyperkalemia; F31.9 Bipolar disorder, unspecified; G89.29 Other chronic pain; I07.1 Rheumatic tricuspid insufficiency; I10 Essential (primary) hypertension; I27.21 Secondary pulmonary arterial hypertension; I48.0 Paroxysmal atrial fibrillation; I70.0 Atherosclerosis of aorta; M79.7 Fibromyalgia; R79.1 Abnormal coagulation profile; E86.9 Volume depletion, unspecified; E66.9 Obesity, unspecified; Z79.01 Long term (current) use of anticoagulants; Z82.49 Family history of ischemic heart disease and other diseases of the circulatory system; Z86.711 Personal history of pulmonary embolism; Z90.710 Acquired absence of both cervix and uterus; Z95.0 Presence of cardiac pacemaker; Z79.899 Other long term (current) drug therapy; Z79.891 Long term (current) use of opiate analgesic; Z79.84 Long term (current) use of oral hypoglycemic drugs; Z88.8 Allergy status to other drugs, medicaments and biological substances; Z88.2 Allergy status to sulfonamides; Z81.8 Family history of other mental and behavioral disorders; Z68.32 Body mass index [BMI] 32.0-32.9, adult
CPT/HCPCS: 36415; 36573; 36600; 71045; 80053; 81003; 82436; 82533; 82550; 82570; 82728; 82803; 82962; 83036; 83605; 83615; 83735; 83880; 84133; 84300; 85018; 85025; 85379; 85610; 85651; 86140; 87040; 87081; 87635; 93005; 93306; 99291; G0378; J0456; J0696; J1100; J2405; J3430; C1751; C9113; J1815; J1940; J7030; J7040; J7050; J7120